=== PATIENT | male | born 1965 | race Caucasian/White ===

== ENCOUNTER 2016-10-11 15:43 | Observation (INO) | payer MEDICARE, OTHER ==
--- NOTE | 2016-10-11 16:15 | EDM.PDOC ---
ED HPI GENERAL MEDICAL PROBLEM - General Chief Complaint: Headache Stated Complaint: CHILLS,VOMITING Time Seen by Provider: 10/11/16 16:14 Source of Information: Reports: Patient History Limitations: Reports: No Limitations - History of Present Illness INITIAL COMMENTS - FREE TEXT/NARRATIVE: Stas presents today with complaints of acute onset cough, clear mucus production and low backpain. Onset Date: 10/11/16 Onset Time: 03:00 Duration: Hour(s): Location: Reports: Chest, Back Quality: Reports: Ache, Throbbing Severity: Moderate Improves with: Reports: None Worsens with: Reports: None Associated Symptoms: Reports: Chest Pain, Cough, Diaphoresis, Fever/Chills, Malaise, Other (nausea). 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 ) - Related Data Allergies Allergy/AdvReac Type Severity Reaction Status Date / Time cefazolin sodium [From Ancef] Allergy Anaphylactic Verified 01/28/14 13:27 Shock Penicillins Allergy Anaphylactic Verified 01/28/14 13:27 Shock succinylcholine chloride Allergy Anaphylactic Verified 01/28/14 13:27 [From Anectine] Shock Home Meds: Home Meds Amitripyline mg PO BEDTIME 01/28/14 [History] Meloxicam [Mobic] 7.5 mg PO DAILY 01/28/14 [History] Cyclobenzaprine [Flexeril] 1 tab PO BID 10/11/16 [History] tiZANidine 1 tab PO ASDIRECTED 10/11/16 [History] Past Medical History Musculoskeletal History: Reports: Back Pain, Chronic - Past Surgical History HEENT Surgical History: Reports: Tonsillectomy GI Surgical History: Reports: Appendectomy Social & Family History - Tobacco Use Smoking Status *Q: Never Smoker - Alcohol Use Days Per Week of Alcohol Use: 0 - Recreational Drug Use Recreational Drug Use: No ED ROS GENERAL - Review of Systems Review Of Systems: See Below Constitutional: Reports: Chills, Fatigue, Diaphoresis. Denies: Night Sweats HEENT: Reports: No Symptoms Respiratory: Reports: Cough, Sputum. Denies: Wheezing, Pleuritic Chest Pain, Hemoptysis Cardiovascular: Reports: Chest Pain. Denies: Dyspnea on Exertion, Edema, Lightheadedness, Palpitations, PND, Syncope Endocrine: Reports: No Symptoms GI/Abdominal: Reports: Nausea. Denies: Constipation, Diarrhea, Distension, Hematemesis, Hematochezia, Vomiting : Reports: No Symptoms Musculoskeletal: Reports: Other (Back pain L5 area - chronic in nature with acute worsening. ) Skin: Reports: Diaphoresis. Denies: Cyanosis, Jaundice, Mottled, Pallor, Bruising, Pruritis, Rash, Erythema Neurological: Denies: Confusion, Dizziness, Headache, Numbness, Tingling, Weakness Psychiatric: Reports: No Symptoms Hematologic/Lymphatic: Reports: No Symptoms Immunologic: Reports: No Symptoms ED EXAM, GENERAL - Physical Exam Exam: See Below Exam Limited By: No Limitations General Appearance: Alert, WD/WN, Moderate Distress Eye Exam: Bilateral Eye: EOMI, PERRL Ears: Normal External Exam, Normal Canal, Hearing Grossly Normal, Normal TMs Ear Exam: Bilateral Ear: Auricle Normal, Canal Normal, TM normal Nose: Normal Inspection, Normal Mucosa, No Blood Throat/Mouth: Normal Inspection, Normal Lips, Normal Teeth, Normal Oropharynx, Normal Voice Head: Atraumatic, Normocephalic Neck: Normal Inspection, Supple, Non-Tender, Full Range of Motion. No: Lymphadenopathy (R), Lymphadenopathy (L) Respiratory/Chest: No Respiratory Distress, No Accessory Muscle Use, Chest Non- Tender, Decreased Breath Sounds, Crackles, Rhonchi Cardiovascular: Normal Peripheral Pulses, Regular Rate, Rhythm, No Edema, No Murmur, No Rub Peripheral Pulses: 2+: Radial (L), Radial (R), Dorsalis Pedis (L), Dorsalis Pedis (R) GI/Abdominal: Normal Bowel Sounds, Soft, Non-Tender, No Organomegaly, No Distention, No Abnormal Bruit, No Mass Back Exam: Normal Inspection, Full Range of Motion. No: CVA Tenderness (R), CVA Tenderness (L), Muscle Spasm, Paraspinal Tenderness, Vertebral Tenderness Extremities: Normal Inspection, Normal Range of Motion, No Pedal Edema, Normal Capillary Refill Neurological: Alert, Oriented, CN II-XII Intact, Normal Cognition, No Motor/ Sensory Deficits Psychiatric: Normal Affect, Normal Mood Skin Exam: Normal Color, No Rash, Cool, Diaphoretic Lymphatic: No Adenopathy EKG INTERPRETATION EKG Date: 10/11/16 Rhythm: NSR Course - Vital Signs Last Recorded V/S: Last Vital Signs Temp 35.8 C 10/11/16 17:25 Pulse 80 10/11/16 20:47 Resp 14 10/11/16 20:47 BP 114/64 10/11/16 20:47 Pulse Ox 97 10/11/16 20:47 - Orders/Labs/Meds Orders: Active Orders 24 hr Category Date Time Status EKG Documentation Completion [RC] ASDIRECTED Care 10/11/16 16:34 Active Abdomen Pelvis w Cont [CT] Stat Exams 10/11/16 18:44 Taken Chest 2V [CR] Stat Exams 10/11/16 16:28 Taken Iopamidol [Isovue-300 (61%)] Med 10/11/16 19:00 Active 136 ml IV . DIRECTED Lactated Ringers [Ringers, Lactated] 1,000 ml Med 10/11/16 18:45 Active IV ASDIRECTED Sodium Chloride 0.9% [Normal Saline] 1,000 ml Med 10/11/16 17:30 Active IV ASDIRECTED Sodium Chloride 0.9% [Saline Flush] Med 10/11/16 16:28 Active 10 ml FLUSH ASDIRECTED PRN Sodium Chloride 0.9% [Saline Flush] Med 10/11/16 18:58 Active 10 ml FLUSH ONETIME PRN Saline Lock Insert [OM.PC] Routine Oth 10/11/16 16:28 Ordered EKG 12 Lead [EK] Routine Ther 10/11/16 16:33 Ordered Medication Orders Sodium Chloride (Normal Saline) 1,000 mls @ 500 mls/hr IV ASDIRECTED [facility] Last Admin: 10/11/16 17:51 Dose: 500 mls/hr Lactated Ringer's (Ringers, Lactated) 1,000 mls @ 500 mls/hr IV ASDIRECTED RANDY Last Admin: 10/11/16 18:55 Dose: 500 mls/hr Iopamidol (Isovue-300 (61%)) 136 ml IV . DIRECTED [facility] Last Admin: 10/11/16 19:10 Dose: 150 ml Sodium Chloride (Saline Flush) 10 ml FLUSH ASDIRECTED PRN PRN Reason: Keep Vein Open Last Admin: 10/11/16 16:38 Dose: 10 ml Sodium Chloride (Saline Flush) 10 ml FLUSH ONETIME PRN PRN Reason: PER RADIOLOGY PROTOCOL Last Admin: 10/11/16 19:10 Dose: 10 ml Labs: Laboratory Tests 10/11/16 10/11/16 10/11/16 Range/Units 16:27 16:27 17:18 WBC 20.1 H (4.5-11.0) K/uL RBC 5.03 (4.30-5.90) M/uL Hgb 14.6 (12.0-15.0) g/dL Hct 42.4 (40.0-54.0) % MCV 84 (80-98) fL MCH 29 (27-31) pg MCHC 34 (32-36) % Plt Count 364 (150-400) K/uL Neut % (Auto) 84 H (36-66) % Lymph % (Auto) 10 L (24-44) % [place] % (Auto) 5 (2-6) % Eos % (Auto) 1 L (2-4) % Baso % (Auto) 1 (0-1) % Sodium 146 (140-148) mmol/L Potassium 3.6 (3.6-5.2) mmol/L Chloride 107 (100-108) mmol/L Carbon Dioxide 28 (21-32) mmol/L Anion Gap 11.5 (5.0-14.0) mmol/L BUN 14 (7-18) mg/dL Creatinine 1.3 (0.8-1.3) mg/dL Est Cr Clr Drug Dosing 79.44 mL/min Estimated GFR (MDRD) 58 L (>60) Glucose 149 H (74-106) mg/dL Lactic Acid 2.1 H (0.4-2.0) mmol/L Calcium 9.1 (8.5-10.1) mg/dL Total Bilirubin 0.5 (0.2-1.0) mg/dL AST 22 (15-37) U/L ALT 28 (12-78) U/L Alkaline Phosphatase 103 (46-116) U/L C-Reactive Protein (0.0-0.3) mg/dL Total Protein 8.1 (6.4-8.2) g/dL Albumin 4.8 (3.4-5.0) g/dL Globulin 3.3 (2.3-3.5) g/dL Albumin/Globulin Ratio 1.5 (1.2-2.2) Urine Color Urine Appearance Urine pH (4.5-8.0) Ur Specific [place] (1.008-1.030) Urine Protein (NEGATIVE) mg/dL Urine Glucose (UA) (NEGATIVE) mg/dL Urine Ketones (NEGATIVE) mg/dL Urine Occult Blood (NEGATIVE) Urine Nitrite (NEGAITVE) Urine Bilirubin (NEGATIVE) Urine Urobilinogen (NORMAL) mg/dL Ur Leukocyte Esterase (NEGATIVE) Urine RBC (0-5) Urine WBC (0-5) Ur Epithelial Cells Amorphous Sediment Urine Bacteria Urine Mucus Urine Opiates Screen (NEGATIVE) Ur Oxycodone Screen (NEGATIVE) Urine Methadone Screen (NEGATIVE) Ur Propoxyphene Screen (NEGATIVE) Ur Barbiturates Screen (NEGATIVE) Ur Tricyclics Screen (NEGATIVE) Ur Phencyclidine Scrn (NEGATIVE) Ur Amphetamine Screen (NEGATIVE) U Methamphetamines Scrn (NEGATIVE) Urine MDMA Screen (NEGATIVE) U Benzodiazepines Scrn (NEGATIVE) U Cocaine Metab Screen (NEGATIVE) U Marijuana (THC) Screen (NEGATIVE) 10/11/16 10/11/16 10/11/16 Range/Units 21:29 21:29 22:11 WBC (4.5-11.0) K/uL RBC (4.30-5.90) M/uL Hgb (12.0-15.0) g/dL Hct (40.0-54.0) % MCV (80-98) fL MCH (27-31) pg MCHC (32-36) % Plt Count (150-400) K/uL Neut % (Auto) (36-66) % Lymph % (Auto) (24-44) % [place] % (Auto) (2-6) % Eos % (Auto) (2-4) % Baso % (Auto) (0-1) % Sodium (140-148) mmol/L Potassium (3.6-5.2) mmol/L Chloride (100-108) mmol/L Carbon Dioxide (21-32) mmol/L Anion Gap (5.0-14.0) mmol/L BUN (7-18) mg/dL Creatinine (0.8-1.3) mg/dL Est Cr Clr Drug Dosing mL/min Estimated GFR (MDRD) (>60) Glucose (74-106) mg/dL Lactic Acid (0.4-2.0) mmol/L Calcium (8.5-10.1) mg/dL Total Bilirubin (0.2-1.0) mg/dL AST (15-37) U/L ALT (12-78) U/L Alkaline Phosphatase (46-116) U/L C-Reactive Protein 1.11 H (0.0-0.3) mg/dL Total Protein (6.4-8.2) g/dL Albumin (3.4-5.0) g/dL Globulin (2.3-3.5) g/dL Albumin/Globulin Ratio (1.2-2.2) Urine Color Yellow Urine Appearance Clear Urine pH 6.5 (4.5-8.0) Ur Specific [place] 1.005 L (1.008-1.030) Urine Protein Negative (NEGATIVE) mg/dL Urine Glucose (UA) Normal (NEGATIVE) mg/dL Urine Ketones Negative (NEGATIVE) mg/dL Urine Occult Blood Trace (NEGATIVE) Urine Nitrite Negative (NEGAITVE) Urine Bilirubin Negative (NEGATIVE) Urine Urobilinogen Normal (NORMAL) mg/dL Ur Leukocyte Esterase Negative (NEGATIVE) Urine RBC 0-5 (0-5) Urine WBC 0-5 (0-5) Ur Epithelial Cells Few Amorphous Sediment Rare Urine Bacteria Few Urine Mucus Rare Urine Opiates Screen Positive H (NEGATIVE) Ur Oxycodone Screen Negative (NEGATIVE) Urine Methadone Screen Negative (NEGATIVE) Ur Propoxyphene Screen Negative (NEGATIVE) Ur Barbiturates Screen Negative (NEGATIVE) Ur Tricyclics Screen Positive H (NEGATIVE) Ur Phencyclidine Scrn Positive H (NEGATIVE) Ur Amphetamine Screen Negative (NEGATIVE) U Methamphetamines Scrn Negative (NEGATIVE) Urine MDMA Screen Negative (NEGATIVE) U Benzodiazepines Scrn Negative (NEGATIVE) U Cocaine Metab Screen Negative (NEGATIVE) U Marijuana (THC) Screen Positive H (NEGATIVE) Lab work reviewed. Will complete lactic acid and UDS. CRP elevated. Case discussed with Dr. Parra, will notify Dr. Shine of patient lab work and status. Meds: Medications Generic Name Dose Route Start Last Admin Trade Name Freq PRN Reason Stop Dose Admin Sodium Chloride 1,000 mls @ 500 mls/hr 10/11/16 17:30 10/11/16 17:51 Normal Saline IV 500 mls/hr ASDIRECTED RANDY Administration Lactated Ringer's 1,000 mls @ 500 mls/hr 08/13/17 18:45 10/11/16 18:55 Ringers, Lactated IV 500 mls/hr ASDIRECTED RANDY Administration Iopamidol 136 ml 10/11/16 19:00 10/11/16 19:10 Isovue-300 (61%) IV 150 ml . DIRECTED RANDY Administration Sodium Chloride 10 ml 10/11/16 16:28 10/11/16 16:38 Saline Flush FLUSH 10 ml ASDIRECTED PRN Administration Keep Vein Open Sodium Chloride 10 ml 10/11/16 18:58 10/11/16 19:10 Saline Flush FLUSH 10 ml ONETIME PRN Administration PER RADIOLOGY PROTOCOL Discontinued Medications Generic Name Dose Route Start Last Admin Trade Name Freq PRN Reason Stop Dose Admin Hydromorphone HCl 0.5 mg 10/11/16 16:29 10/11/16 16:39 Dilaudid IVPUSH 10/11/16 16:30 0.5 mg ONETIME ONE Administration Hydromorphone HCl 1 mg 10/11/16 18:42 10/11/16 18:54 Dilaudid IVPUSH 10/11/16 18:43 1 mg ONETIME ONE Administration Sodium Chloride 81 mls @ 3 mls/sec 10/11/16 18:58 10/11/16 19:10 Normal Saline IV 10/11/16 18:59 3 mls/sec ONETIME ONE Administration Ondansetron HCl 4 mg 10/11/16 16:29 10/11/16 16:39 Zofran IVPUSH 10/11/16 16:30 4 mg ONETIME ONE Administration Ondansetron HCl 4 mg 10/11/16 18:42 10/11/16 18:54 Zofran IVPUSH 10/11/16 18:43 4 mg ONETIME ONE Administration - Radiology Interpretation Free Text/Narrative:: Chest x-ray reviewed, wet read and compared to most recent chest x-ray completed in 2013 with Officer. No acute findings noted. Radiologist interpretation pending. - Re-Assessments/Exams Free Text/Narrative Re-Assessment/Exam: 10/11/16 18:45 Patient not able to urinate, WBC elevated with left shift. Will complete Abdominal/pelvis CT with contrast. Patient in agreement with plan. Continue IV fluids, pain and nausea management. Free Text/Narrative Re-Assessment/Exam: 10/11/16 23:05 Patient status, lab work reviewed with Dr. Shine. He states he will be in to see patient. Departure - Departure Time of Disposition: 23:06 Disposition: Admitted As Inpatient 65 Condition: Fair Clinical Impression: Colitis, Marijuana use - Discharge Information Forms: ED Department Discharge - My Orders Last 24 Hours: My Active Orders 10/11/16 16:28 Chest 2V [CR] Stat Sodium Chloride 0.9% [Saline Flush] 10 ml FLUSH ASDIRECTED PRN Saline Lock Insert [OM.PC] Routine 10/11/16 16:33 EKG 12 Lead [EK] Routine 10/11/16 16:34 EKG Documentation Completion [RC] ASDIRECTED 10/11/16 17:30 Sodium Chloride 0.9% [Normal Saline] 1,000 ml IV ASDIRECTED 10/11/16 18:44 Abdomen Pelvis w Cont [CT] Stat 10/11/16 18:45 Lactated Ringers [Ringers, Lactated] 1,000 ml IV ASDIRECTED 10/11/16 18:58 Sodium Chloride 0.9% [Saline Flush] 10 ml FLUSH ONETIME PRN 10/11/16 19:00 Iopamidol [Isovue-300 (61%)] 136 ml IV . DIRECTED - Assessment/Plan Last 24 Hours: My Active Orders 10/11/16 16:28 Chest 2V [CR] Stat Sodium Chloride 0.9% [Saline Flush] 10 ml FLUSH ASDIRECTED PRN Saline Lock Insert [OM.PC] Routine 10/11/16 16:33 EKG 12 Lead [EK] Routine 10/11/16 16:34 EKG Documentation Completion [RC] ASDIRECTED 10/11/16 17:30 Sodium Chloride 0.9% [Normal Saline] 1,000 ml IV ASDIRECTED 10/11/16 18:44 Abdomen Pelvis w Cont [CT] Stat 10/11/16 18:45 Lactated Ringers [Ringers, Lactated] 1,000 ml IV ASDIRECTED 10/11/16 18:58 Sodium Chloride 0.9% [Saline Flush] 10 ml FLUSH ONETIME PRN 10/11/16 19:00 Iopamidol [Isovue-300 (61%)] 136 ml IV . DIRECTED Assessment:: Colitis Marijuana use Plan: Dr. Shine will be in to evaluate patient for further care, possible admission.
[2016-10-11] MEDS ORDERED: Sodium Chloride 0.9% 10 ML Syringe FLUSH PRN ×2 (16:28→18:58)
[2016-10-11] MEDS ORDERED: HYDROmorphone 0.5 MG/0.5 ML Syringe IVPUSH ONE (16:29)
[2016-10-11] MEDS ORDERED: Ondansetron 4 MG/2 ML SDV IVPUSH ONE ×2 (16:29→18:42)
[2016-10-11] MEDS ORDERED: Sodium Chloride 0.9% 1,000 ML IV SCH ×2 (17:30→23:45)
[2016-10-11] MEDS ORDERED: HYDROmorphone 1 MG/ML Syringe IVPUSH ONE (18:42)
[2016-10-11] MEDS ORDERED: Lactated Ringers 1,000 ML IV SCH (18:45)
[2016-10-11] MEDS ORDERED: Iopamidol 612 MG/ML 150 ML Bottle IV SCH (19:00)
[2016-10-11] MEDS ORDERED: Ondansetron 4 MG/2 ML SDV IV PRN (23:45)
[2016-10-11] MEDS ORDERED: HYDROmorphone 0.5 MG/0.5 ML Syringe IVPUSH PRN (23:48)
[2016-10-12] MEDS ORDERED: Amitriptyline 10 MG Tab PO SCH ×2 (01:00→21:00)
--- NOTE | 2016-10-12 06:49 | HP ---
CHIEF COMPLAINT: Back and abdominal pain. HISTORY OF PRESENT ILLNESS: A 51-year-old, who had fractured his spine in the past, L5-S1 area. About three years ago, he was in the emergency room with similar findings of severe back pain and upper abdominal pain, nausea. He had loose stools at that time, was noted to have elevated white count and nonspecific bowel pattern on imaging. He was given fluids and was feeling better, was sent home. He started having some back pain today along with abdominal pain, nausea, vomiting, sweating and no loose stools. He came to the emergency room, CT scan was obtained, which showed mild wall thickening consistent with possible colitis. He has been on no recent antibiotics. His only complaint is that he has had nasal congestion recently, a lot of drainage. He has had no family history or personal history of inflammatory bowel disease. He has not been with around anyone else who has been ill and I was asked to admit the patient for further evaluation and treatment. PAST MEDICAL HISTORY: It sounds like he had his appendix and tonsils out in the past and fractured spine, but otherwise no other significant surgical or medical problems. He gets his care through the [facility]. MEDICATIONS: He has been on hydrocodone in the past, but was able to get off it. He takes amitriptyline 10 mg at bedtime, Flexeril 10 mg b.i.d. He alternates that with tizanidine 2 mg b.i.d., meloxicam 7.5 mg daily. ALLERGIES: PENICILLIN AND CEFAZOLIN. SOCIAL HISTORY: He is a nonsmoker. No alcohol use. He does admit to smoking marijuana and that he states that this is better than when he was on hydrocodone in the past. FAMILY HISTORY: Father had some colon polyps, but there is no family history of inflammatory bowel disease. REVIEW OF SYSTEMS: Denies headaches, vision changes, upper respiratory symptoms, other than that nasal congestion with drainage. He has had some nausea with vomiting. No diarrhea. He had a normal bowel movement. No bloody or black stools. No urinary problems and feels that he is dehydrated. No swelling in his legs. No skin problems reported. No neurologic complaints reported other than his back pain. PHYSICAL EXAMINATION: VITAL SIGNS: Weight 90 kg. Temp 35.8, pulse 80, blood pressure 114/64, respirations 14, O2 saturation 97% on room air. GENERAL: The patient is alert and oriented x3. Resting comfortably in no apparent distress. HEENT: Pharynx is clear. Slightly dry mucous membranes. NECK: Supple. No obvious thyromegaly. LUNGS: Clear. HEART: Regular without murmurs. ABDOMEN: Soft, nontender. No mass or organomegaly palpated. At present, he had no abdominal pain, but had received IV Dilaudid for back pain. He does have deformity in the area of L5, but there was no pain or other deformity. EXTREMITIES: No edema. Pedal pulses are palpable and equal bilaterally. SKIN: Unremarkable. LABORATORY DATA: White count 20,000, hemoglobin 14.6, platelets 364,000 with 84% neutrophils, 10% lymphocytes. Sodium 146, potassium 3.6, chloride 107, BUN is 14, creatinine 1.3, glucose 149. Liver function functions were normal. C-reactive protein was elevated at 1.1. Urine was clear. Urine toxic screen was positive for opiates, I am not sure if they gave him the Dilaudid before they did this or not. Positive for the tricyclics which he is on phencyclidine, was positive for marijuana, which he admits to. ASSESSMENT: Nausea with vomiting, abdominal and back pain, which he had similar episode, he states a year ago, but it looks like based on his medical records that was about three years ago. At that time, he was given IV fluids and discharged from the ER. We will admit him under observation. Anticipate less than two midnight stay, given IV fluids, I do feel that he has a little bit dehydrated. The patient is not having any pain at present. We will continue with Dilaudid as needed. Here, staff was thinking that he needed antibiotics, but I do not have any reason to say at this point that he has had bacterial infectious colitis at this time and presents similar to how he did three years ago. We will re-evaluate in the morning after IV fluids, pain medicine if needed. Jordy Shine MD /[id number]
[2016-10-12 07:22] VITALS: BP 107/76
--- NOTE | 2016-10-12 08:55 | CR ---
Chest 2V INDICATION: SOB, cough, diaphoresis COMPARISON: 12/27/2010 FINDINGS: 3 views. Heart size normal. Lungs hyperinflated. Nodular opacity right midlung. No foca l consolidation or pleural effusion. No signs of pulmonary edema. IMPRESSION: 1. Hyperinflation. No infiltrate seen. 2. Nodular opacity right midlung. Recommend CT chest without IV contrast to exclude pulmonary nodule .
[2016-10-12] MEDS ORDERED: CYCLOBENZAPRINE PO SCH (09:00)
[2016-10-12] MEDS ORDERED: Meloxicam 7.5 MG Tab PO SCH (09:00)
--- NOTE | 2016-10-13 03:04 | DISCH ---
DISCHARGE DIAGNOSES: 1. Abdominal pain with mild thickening of his colon wall consistent with mild colitis although really no symptoms of this. 2. Chronic back pain with previous lumbar fracture. PROCEDURES DURING THE HOSPITALIZATION: None. REASON FOR HOSPITALIZATION: A 51-year-old, who had a similar episode here in the hospital about three years ago, where his back was acting up and developed nausea and vomiting. At that time, he had loose stools, was given IV fluids and sent home. He presented with abdominal pain, back pain, sweating. CT scan showed mild thickening of the colon, ascending and transverse colon consistent with mild colitis, but had no diarrhea, did have the nausea and vomiting, was given IV Dilaudid and IV fluids, Zofran for nausea and by the time I saw him, he was feeling quite well, but with the trouble he has had with this in the past, we did admit him under observation. Significant findings, his white count on admission was 20,000, discharge was 16.9. Hemoglobin on admission 14.6, he had 84% neutrophils, 10% lymphocytes. Sodium 146, potassium 3.6, chloride 107, BUN is 14, creatinine 1.3, glucose 149. Liver functions are normal. C-reactive protein was elevated at 1.1. Urinalysis was unremarkable. Urine drug screen was positive for marijuana which he does admit. For his chronic back pain which he is on, I will also phencyclidine and possible opioids, but I dot know if he had a dose of Dilaudid already in the ER when they did the urine drug screen. CT scan showed mild thickening of the ascending and transverse colon consistent with mild colitis. HOSPITAL COURSE: The patient was admitted, did not require any further Dilaudid or Zofran. His white count was better, he improved as far as nausea or pain, and did desire to go home. DISCHARGE DISPOSITION: Discharged to home. ACTIVITY: As tolerated. DIET: As tolerated. FOLLOWUP: He will follow up with his regular provider as needed. He will return if his pain intensifies, develops more GI symptoms.
== END 2016-10-12 09:51 | disposition home or self-care (01) ==
LOC: JP.ED 15:43 → JP.MS 23:57
PROVIDERS: ADMIT Family Medicine; ATTEND Family Medicine
DX: R10.9 Unspecified abdominal pain (principal); K63.89 Other specified diseases of intestine; G89.29 Other chronic pain; M54.9 Dorsalgia, unspecified; F12.90 Cannabis use, unspecified, uncomplicated; Z88.0 Allergy status to penicillin; Z88.1 Allergy status to other antibiotic agents; Z79.899 Other long term (current) drug therapy; Z88.8 Allergy status to other drugs, medicaments and biological substances; Z98.890 Other specified postprocedural states
CPT/HCPCS: 36415; 71020; 74177; 80053; 80305; 81001; 83605; 85025; 85027; 86140; 87040; 93005; 96361; 96374; 96375; 96376; 99284; 99285; A9270; G0378; J1170; J2405; J7030; J7040; J7050; J7120; 93010

== ENCOUNTER 2017-04-10 15:28 | Inpatient (IN) | payer MEDICARE, OTHER ==
[2017-04-10] MEDS ORDERED: Ketorolac 30 MG/ML SDV IVPUSH ONE (16:44)
[2017-04-10] MEDS ORDERED: Ondansetron 4 MG/2 ML SDV IVPUSH ONE ×2 (16:45→18:33)
[2017-04-10] MEDS ORDERED: Sodium Chloride 0.9% 1,000 ML IV SCH (16:45)
--- NOTE | 2017-04-10 16:51 | EDM.PDOC ---
<Eleonora Parra - Last Filed: 04/10/17 16:45> ED HPI GENERAL MEDICAL PROBLEM - General Chief Complaint: General Stated Complaint: ABD PAIN,CHILLS,VOMITING Time Seen by Provider: 04/10/17 15:55 Source of Information: Reports: Patient History Limitations: Reports: No Limitations - History of Present Illness INITIAL COMMENTS - FREE TEXT/NARRATIVE: pt started to get ill yesterday and now has total body aches. he has vomited 2 or 3 times. He is chilling alot. Onset: Other ( started yesterday. ) Duration: Hour(s):, Getting Worse Location: Reports: Abdomen, Generalized, Other ( Pt has some pain in the upper abdoman probably from vomiting. ) Associated Symptoms: Reports: Diaphoresis, Fever/Chills, Nausea/Vomiting Middle Abdomen Pain Score (Numeric/FACES): 8 - Related Data Allergies Allergy/AdvReac Type Severity Reaction Status Date / Time cefazolin sodium [From Ancef] Allergy Anaphylactic Verified 01/28/14 13:27 Shock Penicillins Allergy Anaphylactic Verified 01/28/14 13:27 Shock succinylcholine chloride Allergy Anaphylactic Verified 01/28/14 13:27 [From Anectine] Shock Home Meds: Home Meds Meloxicam [Mobic] 7.5 mg PO DAILY 01/28/14 [History] Amitriptyline [Elavil] 1 tab PO BEDTIME 10/11/16 [History] Cyclobenzaprine [Flexeril] 1 tab PO BID 10/11/16 [History] tiZANidine 1 tab PO BID 10/11/16 [History] Venlafaxine HCl [Venlafaxine HCl ER] 112.5 mg PO DAILY 10/12/16 [History] Past Medical History Musculoskeletal History: Reports: Back Pain, Chronic Neurological History: Reports: Brain Injury, Head Trauma Psychiatric History: Reports: Depression - Infectious Disease History Infectious Disease History: Reports: Chicken Pox - Past Surgical History HEENT Surgical History: Reports: Tonsillectomy GI Surgical History: Reports: Appendectomy Other Neurological Surgeries/Procedures: 3 head 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 Other Musculoskeletal Surgeries/Procedures:: leg pain, shooting pains in left testicle Social & Family History - Family History Family Medical History: Noncontributory - Tobacco Use Smoking Status *Q: Never Smoker Years of Tobacco use: 20 Packs/Tins Daily: 1 Used Tobacco, but Quit: Yes Month Tobacco Last Used: years ago Second Hand Smoke Exposure: No - Caffeine Use Caffeine Use: Reports: Soda - Alcohol Use Days Per Week of Alcohol Use: 0 - Recreational Drug Use Recreational Drug Use: Yes Drug Use in Last 12 Months: Yes Recreational Drug Type: Reports: Marijuana/Hashish Recreational Drug Use Frequency: Weekly Recreational Drug Last Use: yesterday ED ROS GENERAL - Review of Systems Review Of Systems: See Below Constitutional: Reports: Fever, Chills, Malaise, Weakness, Diaphoresis HEENT: Reports: No Symptoms Respiratory: Reports: Cough Cardiovascular: Reports: No Symptoms Endocrine: Reports: No Symptoms GI/Abdominal: Reports: Abdominal Pain, Other (upper abdomanl distress Pt thinks it might be from vomiting. ) : Reports: No Symptoms Musculoskeletal: Reports: No Symptoms Skin: Reports: No Symptoms Neurological: Reports: No Symptoms Psychiatric: Reports: No Symptoms ED EXAM, GENERAL - Physical Exam Exam: See Below Free Text/Narrative:: pt is chilling and has total body aching. He states this started yesterday and has gotten progressively worse. He has vomited twice. Exam Limited By: No Limitations General Appearance: Alert, Anxious, Mild Distress Ears: Normal TMs Nose: Normal Inspection Throat/Mouth: Normal Inspection Head: Atraumatic Neck: Other (no sig glandular swelling. ) Respiratory/Chest: No Respiratory Distress Cardiovascular: Regular Rate, Rhythm GI/Abdominal: Soft, Non-Tender, Other ( pt has very mild tenderness in the upper abdoman. ) (Male) Exam: Deferred Rectal (Males) Exam: Deferred Extremities: Normal Inspection Neurological: Alert, Oriented, Normal Cognition, Other (pt is moaning and groaning. ) Psychiatric: Anxious Course - Vital Signs Last Recorded V/S: Last Vital Signs Temp 95.5 F 04/10/17 15:50 Pulse 65 04/10/17 15:50 Resp 18 04/10/17 15:50 BP 171/90 H 04/10/17 15:50 Pulse Ox 100 04/10/17 15:50 - Orders/Labs/Meds Orders: Active Orders 24 hr Category Date Time Status Abdomen Pelvis w Cont [CT] Stat Exams 04/10/17 18:33 Taken Chest 2V [CR] Stat Exams 04/10/17 17:11 Taken Sodium Chloride 0.9% [Normal Saline] 1,000 ml Med 04/10/17 16:45 Active IV ASDIRECTED Sodium Chloride 0.9% [Normal Saline] 1,000 ml Med 04/10/17 16:45 Active IV ASDIRECTED Sodium Chloride 0.9% [Normal Saline] 100 ml Med 04/10/17 18:45 Active IV ASDIRECTED Medication Orders Sodium Chloride (Normal Saline) 1,000 mls @ 999 mls/hr IV ASDIRECTED RANDY Last Admin: 04/10/17 18:45 Dose: 999 mls/hr Infusion: 04/10/17 18:01 Dose: 999 mls/hr Admin: 04/10/17 17:00 Dose: 999 mls/hr Sodium Chloride (Normal Saline) 1,000 mls @ 999 mls/hr IV ASDIRECTED RANDY Last Admin: 04/10/17 20:31 Dose: 999 mls/hr Sodium Chloride (Normal Saline) 100 mls @ 3 mls/sec IV ASDIRECTED RANDY Last Admin: 04/10/17 18:58 Dose: 3 mls/sec Labs: Laboratory Tests 04/10/17 04/10/17 04/10/17 Range/Units 16:56 16:56 17:12 WBC 17.7 H (4.5-11.0) K/uL RBC 4.85 (4.30-5.90) M/uL Hgb 14.1 (12.0-15.0) g/dL Hct 41.9 (40.0-54.0) % MCV 86 (80-98) fL MCH 29 (27-31) pg MCHC 34 (32-36) % Plt Count 332 (150-400) K/uL Neut % (Auto) 84 H (36-66) % Lymph % (Auto) 10 L (24-44) % [place] % (Auto) 6 (2-6) % Eos % (Auto) 0 L (2-4) % Baso % (Auto) 0 (0-1) % Sodium 141 (140-148) mmol/L Potassium 4.0 (3.6-5.2) mmol/L Chloride 103 (100-108) mmol/L Carbon Dioxide 29 (21-32) mmol/L Anion Gap 9.2 (5.0-14.0) mmol/L BUN 11 (7-18) mg/dL Creatinine 1.1 (0.8-1.3) mg/dL Est Cr Clr Drug Dosing 87.20 mL/min Estimated GFR (MDRD) > 60 (>60) Glucose 126 H (74-106) mg/dL Lactic Acid 1.9 (0.4-2.0) mmol/L Calcium 9.6 (8.5-10.1) mg/dL Total Bilirubin 0.4 (0.2-1.0) mg/dL AST 21 (15-37) U/L ALT 29 (12-78) U/L Alkaline Phosphatase 88 (46-116) U/L Total Protein 7.3 (6.4-8.2) g/dL Albumin 4.5 (3.4-5.0) g/dL Globulin 2.8 (2.3-3.5) g/dL Albumin/Globulin Ratio 1.6 (1.2-2.2) Urine Color Urine Appearance Urine pH (4.5-8.0) Ur Specific [place] (1.008-1.030) Urine Protein (NEGATIVE) mg/dL Urine Glucose (UA) (NEGATIVE) mg/dL Urine Ketones (NEGATIVE) mg/dL Urine Occult Blood (NEGATIVE) Urine Nitrite (NEGAITVE) Urine Bilirubin (NEGATIVE) Urine Urobilinogen (NORMAL) mg/dL Ur Leukocyte Esterase (NEGATIVE) Urine RBC (0-5) Urine WBC (0-5) Ur Epithelial Cells Amorphous Sediment Urine Bacteria Urine Mucus 04/10/17 Range/Units 18:43 WBC (4.5-11.0) K/uL RBC (4.30-5.90) M/uL Hgb (12.0-15.0) g/dL Hct (40.0-54.0) % MCV (80-98) fL MCH (27-31) pg MCHC (32-36) % Plt Count (150-400) K/uL Neut % (Auto) (36-66) % Lymph % (Auto) (24-44) % [place] % (Auto) (2-6) % Eos % (Auto) (2-4) % Baso % (Auto) (0-1) % Sodium (140-148) mmol/L Potassium (3.6-5.2) mmol/L Chloride (100-108) mmol/L Carbon Dioxide (21-32) mmol/L Anion Gap (5.0-14.0) mmol/L BUN (7-18) mg/dL Creatinine (0.8-1.3) mg/dL Est Cr Clr Drug Dosing mL/min Estimated GFR (MDRD) (>60) Glucose (74-106) mg/dL Lactic Acid (0.4-2.0) mmol/L Calcium (8.5-10.1) mg/dL Total Bilirubin (0.2-1.0) mg/dL AST (15-37) U/L ALT (12-78) U/L Alkaline Phosphatase (46-116) U/L Total Protein (6.4-8.2) g/dL Albumin (3.4-5.0) g/dL Globulin (2.3-3.5) g/dL Albumin/Globulin Ratio (1.2-2.2) Urine Color [place] Urine Appearance Cloudy Urine pH 7.0 (4.5-8.0) Ur Specific [place] 1.015 (1.008-1.030) Urine Protein Trace (NEGATIVE) mg/dL Urine Glucose (UA) Normal (NEGATIVE) mg/dL Urine Ketones 15 H (NEGATIVE) mg/dL Urine Occult Blood Moderate (NEGATIVE) Urine Nitrite Negative (NEGAITVE) Urine Bilirubin Small (NEGATIVE) Urine Urobilinogen 1 (NORMAL) mg/dL Ur Leukocyte Esterase Small (NEGATIVE) Urine RBC 5-10 H (0-5) Urine WBC 5-10 H (0-5) Ur Epithelial Cells Few Amorphous Sediment Numerous Urine Bacteria Few Urine Mucus Numerous Meds: Medications Generic Name Dose Route Start Last Admin Trade Name Freq PRN Reason Stop Dose Admin Sodium Chloride 1,000 mls @ 999 mls/hr 04/10/17 16:45 04/10/17 18:45 Normal Saline IV 999 mls/hr ASDIRECTED RANDY Administration Sodium Chloride 1,000 mls @ 999 mls/hr 04/10/17 16:45 04/10/17 20:31 Normal Saline IV 999 mls/hr ASDIRECTED RANDY Administration Sodium Chloride 100 mls @ 3 mls/sec 04/10/17 18:45 04/10/17 18:58 Normal Saline IV 3 mls/sec ASDIRECTED RANDY Administration Discontinued Medications Generic Name Dose Route Start Last Admin Trade Name Freq PRN Reason Stop Dose Admin Hydromorphone HCl 1 mg 04/10/17 18:33 04/10/17 18:44 Dilaudid IVPUSH 04/10/17 18:34 1 mg ONETIME ONE Administration Hydromorphone HCl 0.5 mg 04/10/17 19:53 04/10/17 20:27 Dilaudid IVPUSH 04/10/17 19:54 0.5 mg ONETIME ONE Administration Metronidazole 500 mg/ Premix 100 mls @ 100 mls/hr 04/10/17 19:52 04/10/17 20: 28 IV 04/10/17 20:51 100 mls/hr ONETIME ONE Administration Iopamidol 120 ml 04/10/17 18:45 04/10/17 18:58 Isovue-300 (61%) IV 120 ml . DIRECTED RANDY Administration Ketorolac Tromethamine 30 mg 04/10/17 16:44 04/10/17 16:58 Toradol IVPUSH 04/10/17 16:45 30 mg ONETIME ONE Administration Ondansetron HCl 4 mg 04/10/17 16:45 04/10/17 16:58 Zofran IVPUSH 04/10/17 16:46 4 mg ONETIME ONE Administration Ondansetron HCl 4 mg 04/10/17 18:33 04/10/17 18:43 Zofran IVPUSH 04/10/17 18:34 4 mg ONETIME ONE Administration Prochlorperazine Edisylate 5 mg 04/10/17 19:53 04/10/17 20:27 Compazine IVPUSH 04/10/17 19:54 5 mg ONETIME ONE Administration Departure - Departure Disposition: Admitted As Inpatient 65 Clinical Impression: Abdominal pain Qualifiers: Abdominal location: left lower quadrant Qualified Code(s): R10.32 - Left lower quadrant pain - Discharge Information Referrals: Jordy Shine MD [Primary Care Provider] - Forms: ED Department Discharge - My Orders Last 24 Hours: My Active Orders 04/10/17 18:33 Abdomen Pelvis w Cont [CT] Stat 04/10/17 18:45 Sodium Chloride 0.9% [Normal Saline] 100 ml IV ASDIRECTED - Assessment/Plan Last 24 Hours: My Active Orders 04/10/17 18:33 Abdomen Pelvis w Cont [CT] Stat 02/10/18 18:45 Sodium Chloride 0.9% [Normal Saline] 100 ml IV ASDIRECTED <OfficerJonny - Last Filed: 04/10/17 21:36> Course - Re-Assessments/Exams Free Text/Narrative Re-Assessment/Exam: 04/10/17 18:34 Took over care from Dr. Parra at 1800, has received fluids states her last 24 hours feeling poorly abdominal pain nausea and vomiting continues to have nausea and left lower quadrant abdominal pain no history of abdominal surgeries , examination abdomen is soft but tender in the left lower quadrant normal bowel sounds Departure - Departure Time of Disposition: 21:36 Condition: Good - Assessment/Plan Plan: Assessment Acuity = acute Site and laterality = abdominal pain Etiology = unclear etiology consider pseudomembranous colitis given his history Manifestations = body aches, fever Location of injury = Home Lab values = WBC elevated at 17.7 consistent leukocytosis, lactic acid normal at 1.9 CMP unremarkable urinalysis reveals 5-10 rbc's consists with a hematuria 5-10 wbc's consists of pyuria CT scan of the abdomen was no acute process Plan Discussed case with hospitalist on-call they agreed to evaluate the patient in the emergency department for admission was given 1 dose of Flagyl in the ED for presumptive pseudomembranous colitis This note was dictated using [employer] voice recognition software please call with any questions on syntax or sathya.
[2017-04-10] MEDS: Sodium Chloride 0.9% 1,000 ML IV SCH ×2 (17:00→18:45)
[2017-04-10] MEDS ORDERED: HYDROmorphone 1 MG/ML Syringe IVPUSH ONE ×2 (18:33→21:46)
[2017-04-10] MEDS ORDERED: Iopamidol 612 MG/ML 150 ML Bottle IV SCH (18:45)
[2017-04-10] MEDS ORDERED: Sodium Chloride 0.9% 100 ML IV SCH (18:45)
[2017-04-10] MEDS ORDERED: metroNIDAZOLE/Normal Saline 500 MG in Premix Bag 1 BAG IV ONE (19:52)
[2017-04-10] MEDS ORDERED: Prochlorperazine 10 MG/2 ML SDV IVPUSH ONE (19:53)
[2017-04-10] MEDS ORDERED: HYDROmorphone 0.5 MG/0.5 ML Syringe IVPUSH ONE (19:53)
[2017-04-10] MEDS ORDERED: Bisacodyl 5 MG Tab PO PRN (22:18)
[2017-04-10] MEDS ORDERED: Ondansetron 4 MG/2 ML SDV IV PRN (22:18)
[2017-04-10] MEDS ORDERED: Pantoprazole 40 MG Vial IVPUSH SCH (22:18)
[2017-04-10] MEDS ORDERED: Ciprofloxacin in D5W 400 MG in Premix Bag 1 BAG IV SCH ×2 (22:18)
[2017-04-10] MEDS ORDERED: Albuterol 0.083% 2.5 MG/3 ML Neb Soln NEB PRN (22:18)
[2017-04-10] MEDS ORDERED: LORazepam 2 MG/ML MDV IV PRN (22:18)
[2017-04-10] MEDS ORDERED: HYDROmorphone 1 MG/ML Syringe IVPUSH PRN (22:18)
--- NOTE | 2017-04-10 22:44 | PCM.HP ---
H&P History of Present Illness - General Date of Service: 04/10/17 Admit Problem/Dx: Admission Diagnosis/Problem Admission Diagnosis/Problem Colitis presumed to be due to infection Source of Information: Patient History Limitations: Reports: No Limitations - History of Present Illness Initial Comments - Free Text/Narative: 04/10/17 18:34 Took over care from Dr. Parra at 1800, has received fluids states her last 24 hours feeling poorly abdominal pain nausea and vomiting continues to have nausea and left lower quadrant abdominal pain no history of abdominal surgeries , examination abdomen is soft but tender in the left lower quadrant normal bowel sounds Acuity = acute Site and laterality = abdominal pain Etiology = unclear etiology consider pseudomembranous colitis given his history Manifestations = body aches, fever Location of injury = Home Lab values = WBC elevated at 17.7 consistent leukocytosis, lactic acid normal at 1.9 CMP unremarkable urinalysis reveals 5-10 rbc's consists with a hematuria 5-10 wbc's consists of pyuria, CT scan of the abdomen was no acute process Plan Discussed case with hospitalist on-call they agreed to evaluate the patient in the emergency department for admission was given 1 dose of Flagyl in the ED for presumptive pseudomembranous colitis Onset of Symptoms: Reports: Gradual Duration of Symptoms: Reports: Day(s): (two) Location: Reports: Abdomen Quality: Reports: Ache, Sharp Severity: Severe Improves with: Reports: Medication Worsens with: Reports: None Associated Symptoms: Reports: Nausea/Vomiting, Other (abdominal pain) Middle Abdomen Pain Score (Numeric/FACES): 8 - Related Data Allergies/Adverse Reactions: Allergies Allergy/AdvReac Type Severity Reaction Status Date / Time cefazolin sodium [From Ancef] Allergy Anaphylactic Verified 01/28/14 13:27 Shock Penicillins Allergy Anaphylactic Verified 01/28/14 13:27 Shock succinylcholine chloride Allergy Anaphylactic Verified 01/28/14 13:27 [From Anectine] Shock Home Medications: Home Meds Meloxicam [Mobic] 7.5 mg PO DAILY 01/28/14 [History] Amitriptyline [Elavil] 1 tab PO BEDTIME 10/11/16 [History] Cyclobenzaprine [Flexeril] 1 tab PO BID 10/11/16 [History] tiZANidine 1 tab PO BID 10/11/16 [History] Venlafaxine HCl [Venlafaxine HCl ER] 112.5 mg PO DAILY 10/12/16 [History] Past Medical History Musculoskeletal History: Reports: Back Pain, Chronic Neurological History: Reports: Brain Injury, Head Trauma Psychiatric History: Reports: Depression - Infectious Disease History Infectious Disease History: Reports: Chicken Pox - Past Surgical History HEENT Surgical History: Reports: Tonsillectomy GI Surgical History: Reports: Appendectomy Other Neurological Surgeries/Procedures: 3 head 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 Other Musculoskeletal Surgeries/Procedures:: leg pain, shooting pains in left testicle Social & Family History - Family History Family Medical History: Noncontributory HEENT: Reports: None Respiratory: Reports: None GI: Reports: None : Reports: None OBGYN: Reports: None Neurological: Reports: None Psychiatric: Reports: None - Tobacco Use Smoking Status *Q: Never Smoker Years of Tobacco use: 20 Packs/Tins Daily: 1 Used Tobacco, but Quit: Yes Month Tobacco Last Used: years ago Second Hand Smoke Exposure: No - Caffeine Use Caffeine Use: Reports: Soda - Alcohol Use Days Per Week of Alcohol Use: 0 - Recreational Drug Use Recreational Drug Use: Yes Drug Use in Last 12 Months: Yes Recreational Drug Type: Reports: Marijuana/Hashish Recreational Drug Use Frequency: Weekly Recreational Drug Last Use: yesterday - Living Situation & Occupation Living situation: Reports: Single (lives alone in [place], [place].) H&P Review of Systems - Review of Systems: Review Of Systems: See Below General: Reports: Fever, Chills, Malaise HEENT: Reports: Headaches Pulmonary: Reports: No Symptoms Cardiovascular: Reports: No Symptoms Gastrointestinal: Reports: Abdominal Pain, Constipation (bowel movement this morning, "like a rock"), Distension, Nausea, Vomiting (2-3 times yesterday) Genitourinary: Reports: No Symptoms Musculoskeletal: Reports: Muscle Pain, Muscle Stiffness Skin: Reports: No Symptoms Psychiatric: Reports: No Symptoms Neurological: Reports: No Symptoms Hematologic/Lymphatic: Reports: No Symptoms Immunologic: Reports: No Symptoms Exam - Exam Exam: See Below - Vital Signs Vital Signs: Last Vital Signs Temp 36.6 C 04/10/17 21:52 Pulse 74 04/10/17 21:52 Resp 18 04/10/17 21:52 BP 136/73 04/10/17 21:52 Pulse Ox 100 04/10/17 21:52 Weight: 79.379 kg - Exam Quality Assessment: Other (IV therapy) General: Alert, Oriented, Cooperative, Mild Distress HEENT: PERRLA, Hearing Intact, Mucosa Moist & [place], Nares Patent, Normal Nasal Septum, Posterior Pharynx Clear, Conjunctiva Clear, EOMI, EACs Clear, TMs Clear Neck: Supple, Trachea Midline, 2 Lungs: Clear to Auscultation, Normal Respiratory Effort Cardiovascular: Regular Rate, Regular Rhythm GI/Abdominal Exam: Normal Bowel Sounds, Soft, Tender (ismael-umbilical) (Male) Exam: Deferred Rectal (Males) Exam: Deferred Back Exam: Normal Inspection, Full Range of Motion, NT Extremities: Normal Inspection, Normal Range of Motion, Non-Tender, No Pedal Edema, Normal Capillary Refill Skin: Warm, Dry, Intact Neurological: Cranial Nerves Intact, Reflexes Equal Bilateral Neuro Extensive - Mental Status: Alert, Oriented x3, Normal Mood/Affect, Normal Cognition Neuro Extensive - Motor, Sensory, Reflexes: CN II-XII Intact, Normal Gait, Normal Reflexes Psychiatric: Alert, Normal Affect, Normal Mood - Patient Data Lab Results Last 24 hrs: Laboratory Results - last 24 hr 04/10/17 Range/Units 22:13 Urine Opiates Screen Positive H (NEGATIVE) Ur Oxycodone Screen Negative (NEGATIVE) Urine Methadone Screen Negative (NEGATIVE) Ur Propoxyphene Screen Negative (NEGATIVE) Ur Barbiturates Screen Negative (NEGATIVE) Ur Tricyclics Screen Positive H (NEGATIVE) Ur Phencyclidine Scrn Negative (NEGATIVE) Ur Amphetamine Screen Negative (NEGATIVE) U Methamphetamines Scrn Negative (NEGATIVE) Urine MDMA Screen Negative (NEGATIVE) U Benzodiazepines Scrn Negative (NEGATIVE) U Cocaine Metab Screen Negative (NEGATIVE) U Marijuana (THC) Screen Positive H (NEGATIVE) Result Diagrams: 04/10/17 16:56 04/10/17 16:56 *Q Meaningful Use (ADM) - VTE *Q VTE Criteria *Q: - Stroke *Q Stroke Criteria *Q: - AMI *Q AMI Criteria *Q: - Problem List (1) Abdominal pain SNOMED Code(s): 82189098 ICD Code: R10.9 - UNSPECIFIED ABDOMINAL PAIN Status: Acute Priority: High Current Visit: Yes Qualifiers: Abdominal location: left lower quadrant Qualified Code(s): R10.32 - Left lower quadrant pain (2) Colitis SNOMED Code(s): 92262868 ICD Code: K52.9 - NONINFECTIVE GASTROENTERITIS AND COLITIS, UNSPECIFIED Status: Acute Priority: High Current Visit: Yes Problem List Initiated/Reviewed/Updated: Yes Orders Last 24hrs: Active Orders 24 hr Category Date Time Status Patient Status [ADT] Routine ADT 04/10/17 22:18 Active Intake and Output [RC] QSHIFT Care 04/10/17 22:18 Active Notify Provider Vital Signs [RC] ASDIRECTED Care 04/10/17 22:18 Active Oxygen Therapy [RC] PRN Care 04/10/17 22:18 Active Pulse Oximetry [RC] PRN Care 04/10/17 22:18 Active RT Aerosol Therapy [RC] ASDIRECTED Care 04/10/17 22:18 Active Up ad Poonam [RC] ASDIRECTED Care 04/10/17 22:18 Active VTE/DVT Education [RC] Per Unit Routine Care 04/10/17 22:18 Active Vital Signs [RC] Q4H Care 04/10/17 22:18 Active Regular Diet [DIET] Diet 04/10/17 Breakfast Active BASIC METABOLIC PANEL,BMP [CHEM] AM Lab 04/11/17 05:11 Ordered CBC WITH AUTO DIFF [HEME] AM Lab 04/11/17 05:11 Ordered LACTIC ACID [CHEM] AM Lab 04/11/17 05:11 Ordered Acetaminophen [Tylenol] Med 04/10/17 22:18 Active 650 mg PO Q4H PRN Albuterol [Proventil Neb Soln] Med 04/10/17 22:18 Active 2.5 mg NEB Q4H PRN Bisacodyl [Dulcolax] Med 04/10/17 22:18 Active 5 mg PO DAILY PRN Ciprofloxacin in D5W [Cipro in D5W 400 MG/200 ML] 400 Med 04/10/17 22:18 Active mg Premix Bag 1 bag IV BID Docusate Sodium [Colace] Med 04/10/17 22:18 Active 100 mg PO BID Enoxaparin [Lovenox] Med 04/11/17 09:00 Active 40 mg SUBCUT DAILY HYDROmorphone [Dilaudid] Med 04/10/17 22:18 Active 1 mg IVPUSH Q2H PRN LORazepam [Ativan] Med 04/10/17 22:18 Active 1 mg IV Q6H PRN Ondansetron [Zofran ODT] Med 04/10/17 22:18 Active 4 mg PO Q6H PRN Ondansetron [Zofran] Med 04/10/17 22:18 Active 4 mg IV Q4H PRN Pantoprazole [ProTONIX IV] Med 04/10/17 22:18 Active 40 mg IVPUSH BID Sodium Chloride 0.9% [Normal Saline] 1,000 ml Med 04/10/17 22:18 Active IV ASDIRECTED Venlafaxine [Effexor XR] Med 04/11/17 09:00 Active 112.5 mg PO DAILY Zolpidem [Ambien] Med 04/11/17 21:00 Active 5 mg PO BEDTIME metroNIDAZOLE/Normal Saline [Flagyl 500 MG in NS 100 ML Med 04/11/17 04:00 Active ] 500 mg Premix Bag 1 bag IV Q8H oxyCODONE Med 04/10/17 22:18 Active 5 mg PO Q4H PRN Resuscitation Status Routine Resus Stat 04/10/17 21:52 Ordered Medication Orders Acetaminophen (Tylenol) 650 mg PO Q4H PRN PRN Reason: Pain (Mild 1-3)/fever Albuterol (Proventil Neb Soln) 2.5 mg NEB Q4H PRN PRN Reason: Shortness Of Breath/wheezing Bisacodyl (Dulcolax) 5 mg PO DAILY PRN PRN Reason: Constipation Docusate Sodium (Colace) 100 mg PO BID [facility] Enoxaparin Sodium (Lovenox) 40 mg SUBCUT DAILY RANDY Hydromorphone HCl (Dilaudid) 1 mg IVPUSH Q2H PRN PRN Reason: Abdominal Pain Ciprofloxacin/Dextrose 400 mg/ (Premix) 200 mls @ 200 mls/hr IV BID RANDY Metronidazole 500 mg/ Premix 100 mls @ 100 mls/hr IV Q8H RANDY Sodium Chloride (Normal Saline) 1,000 mls @ 125 mls/hr IV ASDIRECTED RANDY Lorazepam (Ativan) 1 mg IV Q6H PRN PRN Reason: Nausea/Vomiting Ondansetron HCl (Zofran Odt) 4 mg PO Q6H PRN PRN Reason: Nausea able to take PO Ondansetron HCl (Zofran) 4 mg IV Q4H PRN PRN Reason: Nausea/Vomiting Oxycodone HCl (Oxycodone) 5 mg PO Q4H PRN PRN Reason: Pain (moderate 4-6) Pantoprazole Sodium (Protonix Iv) 40 mg IVPUSH BID RANDY Venlafaxine HCl (Effexor Xr) 112.5 mg PO DAILY RANDY Zolpidem Tartrate (Ambien) 5 mg PO BEDTIME RANDY Assessment/Plan Comment:: ASSESSMENT / PLAN -This is a 52 year old male evaluated ER with complaints of abdominal pain, nausea, vomiting and body aches for the past two days. He reports feeling poorly with abdominal pain, nausea and vomiting. He continues to have nausea and left lower quadrant abdominal pain. No history of abdominal surgeries, examination abdomen is soft but tender in the left lower quadrant normal bowel sounds. reports "bad" heartburn with acid taste in mouth, denies any black or tarry stool Acuity = acute Site and laterality = abdominal pain Etiology = unclear etiology consider pseudomembranous colitis given his history Manifestations = body aches, fever Location of injury = Home Lab values = WBC elevated at 17.7 consistent leukocytosis, lactic acid normal at 1.9 CMP unremarkable urinalysis reveals 5-10 rbc's consists with a hematuria 5-10 wbc's consists of pyuria, CT scan of the abdomen was no acute process Meds; given 1 dose of Flagyl in the ED for presumptive pseudomembranous colitis , IV Zofran and Dilaudid for pain control. Plan: Colitis with abdominal pain, acid reflux -Admit Observation to [address] [place] [address] -IV Cipro 400mg every 12 hours -IV Flaygl 500mg every 8 hours -IV Protonix 40mg every 12 hours -IV fluids for rehydration NS at 125 mL per hour -Advise to notify nurses of any abdominal pain or other symptoms -And a.m. labs: CBC, BMP, lactic acid Maintenance issues -Orders home meds: hold except -Nutrition: Regular diet -Mendoza catheter not indicated at this time -DVT: Lovenox 40mg subcut -GI Prophalaxis; IV Protonix 40mg bid CODE STATUS: Full Admission status: Admit to Observation -I expect this patient to stay less than 24 hours, not to exceed 96 hours for evaluation and management of this problem. Disposition: home Primary care provider: Dr. Shine Hospitalist: Dr. Doan
[2017-04-10] MEDS: Docusate Sodium 100 MG Cap PO SCH (22:56)
[2017-04-10] MEDS: Zolpidem 5 MG Tab PO SCH (23:52)
[2017-04-10] MEDS: Acetaminophen 325 MG Tab PO PRN (23:52)
[2017-04-11] MEDS: Sodium Chloride 0.9% 1,000 ML IV SCH ×2 (01:46→10:33)
[2017-04-11] MEDS: metroNIDAZOLE/Normal Saline 500 MG in Premix Bag 1 BAG IV SCH ×3 (03:01→19:24)
[2017-04-11] MEDS: Acetaminophen 325 MG Tab PO PRN (05:28)
[2017-04-11] MEDS: oxyCODONE 5 MG Tab PO PRN ×4 (05:28→19:59)
[2017-04-11] MEDS: Ondansetron 4 MG Tab.DIS PO PRN ×2 (06:04→14:31)
[2017-04-11] MEDS: Docusate Sodium 100 MG Cap PO SCH ×2 (08:26→19:59)
[2017-04-11] MEDS: Enoxaparin 40 MG/0.4 ML Syringe SUBCUT SCH (08:27)
[2017-04-11] MEDS: VENLAFAXINE PO SCH ×2 (08:27)
[2017-04-11] MEDS ORDERED: Venlafaxine 37.5 MG Cap.ER PO SCH (09:00)
[2017-04-11] MEDS: Pantoprazole 40 MG Vial IVPUSH SCH ×2 (10:35→22:27)
[2017-04-11] MEDS: Ciprofloxacin in D5W 400 MG in Premix Bag 1 BAG IV SCH ×4 (10:45→22:27)
--- NOTE | 2017-04-11 11:55 | PCM.PN ---
- General Info Date of Service: 04/11/17 Subjective Update: Mr. Jay is a 52-year-old gentleman who is admitted last night through the emergency department, to observation status for further management of probable enteritis with nausea and vomiting of 24 hours duration. He also did experience some supraumbilical pain, that seems to have resolved and he has had no further nausea or vomiting. Vital signs have been stable and he has remained afebrile. White blood cell count was elevated on admission and has increased this morning to 20,000. ET scan of the abdomen and pelvis was performed in the emergency department and showed no obvious abnormalities to explain his current symptoms. - Review of Systems General: Reports: Weakness. Denies: Fever, Chills Pulmonary: Reports: No Symptoms Cardiovascular: Reports: No Symptoms Gastrointestinal: Reports: Decreased Appetite. Denies: Abdominal Pain, Difficulty Swallowing, Nausea, Vomiting - Patient Data Vitals - Most Recent: Last Vital Signs Temp 97.5 F 04/11/17 10:39 Pulse 64 04/11/17 10:39 Resp 16 04/11/17 10:39 BP 131/62 04/11/17 10:39 Pulse Ox 98 04/11/17 10:39 Weight - Most Recent: 175 lb I&O - Last 24 Hours: Intake & Output 04/10/17 04/11/17 04/11/17 22:59 06:59 14:59 Intake Total 1540 200 Output Total 900 Balance 640 200 Lab Results Last 24 Hours: Laboratory Results - last 24 hr 04/10/17 04/11/17 04/11/17 Range/Units 22:13 05:46 05:46 WBC 20.6 H (4.5-11.0) K/uL RBC 4.73 (4.30-5.90) M/uL Hgb 13.7 (12.0-15.0) g/dL Hct 41.1 (40.0-54.0) % MCV 87 (80-98) fL MCH 29 (27-31) pg MCHC 33 (32-36) % Plt Count 311 (150-400) K/uL Neut % (Auto) 74 H (36-66) % Lymph % (Auto) 17 L (24-44) % [place] % (Auto) 9 H (2-6) % Eos % (Auto) 0 L (2-4) % Baso % (Auto) 0 (0-1) % Sodium 142 (140-148) mmol/L Potassium 3.6 (3.6-5.2) mmol/L Chloride 107 (100-108) mmol/L Carbon Dioxide 23 (21-32) mmol/L Anion Gap 11.9 (5.0-14.0) mmol/L BUN 9 (7-18) mg/dL Creatinine 1.0 (0.8-1.3) mg/dL Est Cr Clr Drug Dosing 95.92 mL/min Estimated GFR (MDRD) > 60 (>60) Glucose 114 H (74-106) mg/dL Lactic Acid (0.4-2.0) mmol/L Calcium 8.5 (8.5-10.1) mg/dL Urine Opiates Screen Positive H (NEGATIVE) Ur Oxycodone Screen Negative (NEGATIVE) Urine Methadone Screen Negative (NEGATIVE) Ur Propoxyphene Screen Negative (NEGATIVE) Ur Barbiturates Screen Negative (NEGATIVE) Ur Tricyclics Screen Positive H (NEGATIVE) Ur Phencyclidine Scrn Negative (NEGATIVE) Ur Amphetamine Screen Negative (NEGATIVE) U Methamphetamines Scrn Negative (NEGATIVE) Urine MDMA Screen Negative (NEGATIVE) U Benzodiazepines Scrn Negative (NEGATIVE) U Cocaine Metab Screen Negative (NEGATIVE) U Marijuana (THC) Screen Positive H (NEGATIVE) 04/11/17 Range/Units 05:46 WBC (4.5-11.0) K/uL RBC (4.30-5.90) M/uL Hgb (12.0-15.0) g/dL Hct (40.0-54.0) % MCV (80-98) fL MCH (27-31) pg MCHC (32-36) % Plt Count (150-400) K/uL Neut % (Auto) (36-66) % Lymph % (Auto) (24-44) % [place] % (Auto) (2-6) % Eos % (Auto) (2-4) % Baso % (Auto) (0-1) % Sodium (140-148) mmol/L Potassium (3.6-5.2) mmol/L Chloride (100-108) mmol/L Carbon Dioxide (21-32) mmol/L Anion Gap (5.0-14.0) mmol/L BUN (7-18) mg/dL Creatinine (0.8-1.3) mg/dL Est Cr Clr Drug Dosing mL/min Estimated GFR (MDRD) (>60) Glucose (74-106) mg/dL Lactic Acid 2.1 H (0.4-2.0) mmol/L Calcium (8.5-10.1) mg/dL Urine Opiates Screen (NEGATIVE) Ur Oxycodone Screen (NEGATIVE) Urine Methadone Screen (NEGATIVE) Ur Propoxyphene Screen (NEGATIVE) Ur Barbiturates Screen (NEGATIVE) Ur Tricyclics Screen (NEGATIVE) Ur Phencyclidine Scrn (NEGATIVE) Ur Amphetamine Screen (NEGATIVE) U Methamphetamines Scrn (NEGATIVE) Urine MDMA Screen (NEGATIVE) U Benzodiazepines Scrn (NEGATIVE) U Cocaine Metab Screen (NEGATIVE) U Marijuana (THC) Screen (NEGATIVE) Med Orders - Current: Current Medications Acetaminophen (Tylenol) 650 mg PO Q4H PRN PRN Reason: Pain (Mild 1-3)/fever Last Admin: 04/11/17 05:28 Dose: 650 mg Albuterol (Proventil Neb Soln) 2.5 mg NEB Q4H PRN PRN Reason: Shortness Of Breath/wheezing Bisacodyl (Dulcolax) 5 mg PO DAILY PRN PRN Reason: Constipation Docusate Sodium (Colace) 100 mg PO BID [facility] Last Admin: 04/11/17 08:26 Dose: 100 mg Enoxaparin Sodium (Lovenox) 40 mg SUBCUT DAILY [facility] Last Admin: 04/11/17 08:27 Dose: 40 mg Hydromorphone HCl (Dilaudid) 1 mg IVPUSH Q2H PRN PRN Reason: Abdominal Pain Last Admin: 04/11/17 05:56 Dose: 1 mg Metronidazole 500 mg/ Premix 100 mls @ 100 mls/hr IV Q8H [facility] Last Admin: 04/11/17 03:01 Dose: 100 mls/hr Ciprofloxacin/Dextrose 400 mg/ (Premix) 200 mls @ 200 mls/hr IV Q12H [facility] Last Admin: 04/11/17 10:45 Dose: 200 mls/hr Ondansetron HCl (Zofran Odt) 4 mg PO Q6H PRN PRN Reason: Nausea able to take PO Last Admin: 04/11/17 06:04 Dose: 4 mg Ondansetron HCl (Zofran) 4 mg IV Q4H PRN PRN Reason: Nausea/Vomiting Oxycodone HCl (Oxycodone) 5 mg PO Q4H PRN PRN Reason: Pain (moderate 4-6) Last Admin: 04/11/17 10:43 Dose: 5 mg Pantoprazole Sodium (Protonix Iv) 40 mg IVPUSH Q12H [facility] Last Admin: 04/11/17 10:35 Dose: 40 mg Venlafaxine HCl 37.5 mg/ (Venlafaxine HCl 75 mg) 112.5 mg PO DAILY [facility] Last Admin: 04/11/17 08:27 Dose: 112.5 mg Zolpidem Tartrate (Ambien) 5 mg PO BEDTIME [facility] Last Admin: 04/10/17 23:52 Dose: 5 mg Discontinued Medications Hydromorphone HCl (Dilaudid) 1 mg IVPUSH ONETIME ONE Stop: 04/10/17 18:34 Last Admin: 04/10/17 18:44 Dose: 1 mg Hydromorphone HCl (Dilaudid) 0.5 mg IVPUSH ONETIME ONE Stop: 04/10/17 19:54 Last Admin: 04/10/17 20:27 Dose: 0.5 mg Hydromorphone HCl (Dilaudid) 1 mg IVPUSH ONETIME ONE Stop: 04/10/17 21:47 Last Admin: 04/10/17 22:05 Dose: 1 mg Sodium Chloride (Normal Saline) 1,000 mls @ 999 mls/hr IV ASDIRECTED [facility] Last Admin: 04/10/17 18:45 Dose: 999 mls/hr Sodium Chloride (Normal Saline) 1,000 mls @ 999 mls/hr IV ASDIRECTED [facility] Last Admin: 04/10/17 20:31 Dose: 999 mls/hr Sodium Chloride (Normal Saline) 100 mls @ 3 mls/sec IV ASDIRECTED [facility] Last Admin: 04/10/17 18:58 Dose: 3 mls/sec Metronidazole 500 mg/ Premix 100 mls @ 100 mls/hr IV ONETIME ONE Stop: 04/10/17 20:51 Last Admin: 04/10/17 20:28 Dose: 100 mls/hr Ciprofloxacin/Dextrose 400 mg/ (Premix) 200 mls @ 200 mls/hr IV BID [facility] Last Admin: 04/10/17 22:56 Dose: 200 mls/hr Sodium Chloride (Normal Saline) 1,000 mls @ 125 mls/hr IV ASDIRECTED [facility] Last Admin: 04/11/17 10:33 Dose: 125 mls/hr Iopamidol (Isovue-300 (61%)) 120 ml IV . DIRECTED [facility] Last Admin: 04/10/17 18:58 Dose: 120 ml Ketorolac Tromethamine (Toradol) 30 mg IVPUSH ONETIME ONE Stop: 04/10/17 16:45 Last Admin: 04/10/17 16:58 Dose: 30 mg Lorazepam (Ativan) 1 mg IV Q6H PRN PRN Reason: Nausea/Vomiting Ondansetron HCl (Zofran) 4 mg IVPUSH ONETIME ONE Stop: 04/10/17 16:46 Last Admin: 04/10/17 16:58 Dose: 4 mg Ondansetron HCl (Zofran) 4 mg IVPUSH ONETIME ONE Stop: 04/10/17 18:34 Last Admin: 04/10/17 18:43 Dose: 4 mg Pantoprazole Sodium (Protonix Iv) 40 mg IVPUSH BID [facility] Last Admin: 04/10/17 22:55 Dose: 40 mg Prochlorperazine Edisylate (Compazine) 5 mg IVPUSH ONETIME ONE Stop: 04/10/17 19:54 Last Admin: 04/10/17 20:27 Dose: 5 mg Zolpidem Tartrate (Ambien) 5 mg PO BEDTIME [facility] - Exam Quality Assessment: DVT Prophylaxis General: Alert, Oriented, Cooperative, Mild Distress Lungs: Clear to Auscultation, Normal Respiratory Effort Cardiovascular: Regular Rate, Regular Rhythm, No Murmurs GI/Abdominal Exam: Soft, No Organomegaly, Tender. No: Distended, Guarding, Rigid, Rebound Extremities: Non-Tender, No Pedal Edema Skin: Warm, Dry, Intact - Problem List Review Problem List Initiated/Reviewed/Updated: Yes - My Orders Last 24 Hours: My Active Orders 04/11/17 11:48 Convert IV to Saline Lock [OM.PC] Routine 04/12/17 05:00 BASIC METABOLIC PANEL,BMP [CHEM] Timed CBC WITH AUTO DIFF [HEME] Timed - Plan Plan:: ASSESSMENT / PLAN ENTERITIS-associated with nausea, vomiting, and abdominal pain. Improved since admission but still feels very weak mild white blood cell count has increased from 17,000-20,000. -Continue IV Flagyl and ciprofloxacin -IV Protonix 40mg every 12 hours -Saline lock IV Maintenance issues -Nutrition: Regular diet -Mendoza catheter not indicated at this time -DVT: Lovenox 40mg subcut -GI Prophalaxis; IV Protonix 40mg bid CODE STATUS: Full Admission status: He will be changed to inpatient status, will require at least one more night of hospitalization for management of enteritis Disposition: home Primary care provider: Dr. Shine Hospitalist: Dr. Doan
[2017-04-11] MEDS: Cyclobenzaprine 10 MG Tab PO PRN (17:49)
[2017-04-11] MEDS: Zolpidem 5 MG Tab PO SCH (19:59)
[2017-04-11] MEDS ORDERED: Zolpidem 5 MG Tab PO SCH (21:00)
[2017-04-12] MEDS: metroNIDAZOLE/Normal Saline 500 MG in Premix Bag 1 BAG IV SCH ×2 (03:48→11:29)
[2017-04-12] MEDS: oxyCODONE 5 MG Tab PO PRN ×2 (03:53→09:08)
[2017-04-12] MEDS: Cyclobenzaprine 10 MG Tab PO PRN (07:50)
[2017-04-12] MEDS: Docusate Sodium 100 MG Cap PO SCH (09:08)
[2017-04-12] MEDS: VENLAFAXINE PO SCH ×2 (09:09)
[2017-04-12] MEDS: Enoxaparin 40 MG/0.4 ML Syringe SUBCUT SCH (09:09)
[2017-04-12] MEDS: Pantoprazole 40 MG Vial IVPUSH SCH (09:10)
--- NOTE | 2017-04-12 09:14 | CR ---
Chest 2V HISTORY: elevated wbc. COMPARISON: 10/11/2016 FINDINGS: Lungs are hyperinflated consistent with COPD. No acute infiltrate is identified. Cardiomediastinal si lhouette is within normal limits. No vascular redistribution or pleural fluid can be seen. Bony struc tures and soft tissues are unremarkable. IMPRESSION: No acute chest abnormality or significant interval change is identified.
--- NOTE | 2017-04-12 09:21 | CR ---
Chest 2V HISTORY: Leukocytosis, cough, follow-up after hydration COMPARISON: 04/10/2017 FINDINGS: Lungs are hyperinflated with flattening of the diaphragms suggesting a component of COPD. Cardiomedia stinal silhouette is within normal limits. No vascular redistribution or pleural fluid can be seen. B timothy structures and soft tissues are stable. IMPRESSION: Hyperinflation consistent with COPD. No acute chest abnormality or significant interval change is lane ntified.
[2017-04-12] MEDS: Ciprofloxacin in D5W 400 MG in Premix Bag 1 BAG IV SCH ×2 (10:06)
[2017-04-12 10:50] VITALS: BP 137/79
--- NOTE | 2017-04-12 12:45 | PCM.DCSUM1 ---
Discharge Summary - Hospital Course Brief History: 52-year-old male with history ofchronic back pain who presented with abdominal pain, nausea vomiting and was admitted for management of enteritis - Discharge Data Discharge Date: 04/12/17 Discharge Disposition: Home, Self-Care 01 Condition: Fair - Discharge Diagnosis/Problem(s) (1) Enteritis SNOMED Code(s): 19002444 ICD Code: K52.9 - NONINFECTIVE GASTROENTERITIS AND COLITIS, UNSPECIFIED Status: Acute - Patient Summary/Data Hospital Course: Stas presented to the emergency room with abdominal pain, nausea and vomiting. Extensive workup in the emergency room was essentially unremarkable with fairly normal laboratory studies other than a white blood cell count of [address] of the abdomen and pelvis. he was noted to be febrile in the emergency room. there was concern for pseudomembranous colitis based on his history. He was empirically given antibiotics and admitted to the hospital. antibiotic coverage consisted of ciprofloxacin and metronidazole. He was given IV fluids. Over the next 24 hours he had significant improvement in his symptoms with near resolution of the nausea and abdominal pain. He was tolerating his diet well and his fever curve was improving. He had not had further diarrhea during the hospital stay. Over the second half of the hospital stay he had additional improvement. His diet was advanced to a regular diet which he tolerated well. He has not had further nausea, vomiting or diarrhea. His abdominal pain has essentially resolved at this point. We were never able to collect a diarrhea stool for Clostridium difficile testing. At this point I' m inclined to continue his antibiotic therapy for a short period though we were never able to find a definitive infection. He will receive for several additional days of antibiotic therapy with the ciprofloxacin and metronidazole. He will be discharged home with follow-up later this week unless symptoms worsen in the meantime. He has been afebrile since emergency room presentation. - Patient Instructions Diet: Regular Diet as Tolerated Diet, Other: soft and bland foods for the next several days Activity: As Tolerated Driving: May Drive Today Showering/Bathing: May Shower Notify Provider of: Fever, Increased Pain, Nausea and/or Vomiting Other/Special Instructions: 1. You were in the hospital for management of enteritis. I suspect this was caused by a bacterial infection but a viral infection is also possible. You have been improving with antibiotic therapy and I did recommend additional antibiotic treatment as outlined below. - Ciprofloxacin 500 mg, take 1 tablet twice daily. Your next dose is due tonight. -Metronidazole 500 mg, take 1 tablet 3 times daily. Your next dose is due tonight. 2. Continue your other home medications as previously prescribed. 3. Please seek medical attention if you develop fever greater than 101, have severe abdominal pain, persistent vomiting or persistent diarrhea. - Discharge Plan Prescriptions/Med Rec: Ciprofloxacin HCl [Cipro] 500 mg PO BID #9 tablet metroNIDAZOLE [Metronidazole] 500 mg PO TID #13 tablet Home Medications: Home Meds Meloxicam [Mobic] 7.5 mg PO DAILY 01/28/14 [History] Amitriptyline [Elavil] 1 tab PO BEDTIME 10/11/16 [History] Cyclobenzaprine [Flexeril] 1 tab PO BID 10/11/16 [History] tiZANidine 1 tab PO BID 10/11/16 [History] Venlafaxine HCl [Venlafaxine HCl ER] 112.5 mg PO DAILY 10/12/16 [History] Ciprofloxacin HCl [Cipro] 500 mg PO BID #9 tablet 04/12/17 [Rx] metroNIDAZOLE [Metronidazole] 500 mg PO TID #13 tablet 04/12/17 [Rx] Patient Handouts: Ciprofloxacin tablets, Diarrhea, Adult, [id number], Metronidazole tablets or capsules Referrals: Jordy Shine MD [Primary Care Provider] - (follow-up in 3-5 days if your symptoms do not continue to improve or if they get worse) - Discharge Summary/Plan Comment DC Time >30 min.: No (25) - Patient Data Vitals - Most Recent: Last Vital Signs Temp 36.7 C 04/12/17 10:48 Pulse 64 04/12/17 10:48 Resp 18 04/12/17 10:48 BP 137/79 04/12/17 10:48 Pulse Ox 98 04/12/17 10:48 Weight - Most Recent: 81.556 kg I&O - Last 24 hours: Intake & Output 04/11/17 04/12/17 04/12/17 22:59 06:59 14:59 Intake Total 4803 345 2842 Balance 4716 442 1646 Lab Results - Last 24 hrs: Laboratory Results - last 24 hr 04/12/17 04/12/17 Range/Units 05:45 05:45 WBC 8.8 (4.5-11.0) K/uL RBC 4.27 L (4.30-5.90) M/uL Hgb 12.3 (12.0-15.0) g/dL Hct 37.9 L (40.0-54.0) % MCV 89 (80-98) fL MCH 29 (27-31) pg MCHC 33 (32-36) % Plt Count 265 (150-400) K/uL Neut % (Auto) 59 (36-66) % Lymph % (Auto) 29 (24-44) % [place] % (Auto) 10 H (2-6) % Eos % (Auto) 1 L (2-4) % Baso % (Auto) 1 (0-1) % Sodium 142 (140-148) mmol/L Potassium 3.9 (3.6-5.2) mmol/L Chloride 109 H (100-108) mmol/L Carbon Dioxide 28 (21-32) mmol/L Anion Gap 8.9 (5.0-14.0) mmol/L BUN 7 (7-18) mg/dL Creatinine 0.9 (0.8-1.3) mg/dL Est Cr Clr Drug Dosing 106.57 mL/min Estimated GFR (MDRD) > 60 (>60) Glucose 101 (74-106) mg/dL Calcium 8.3 L (8.5-10.1) mg/dL Med Orders - Current: Current Medications Acetaminophen (Tylenol) 650 mg PO Q4H PRN PRN Reason: Pain (Mild 1-3)/fever Last Admin: 04/11/17 05:28 Dose: 650 mg Albuterol (Proventil Neb Soln) 2.5 mg NEB Q4H PRN PRN Reason: Shortness Of Breath/wheezing Bisacodyl (Dulcolax) 5 mg PO DAILY PRN PRN Reason: Constipation Cyclobenzaprine HCl (Flexeril) 10 mg PO BID PRN PRN Reason: Pain Last Admin: 04/12/17 07:50 Dose: 10 mg Docusate Sodium (Colace) 100 mg PO BID [facility] Last Admin: 04/12/17 09:08 Dose: 100 mg Enoxaparin Sodium (Lovenox) 40 mg SUBCUT DAILY [facility] Last Admin: 04/12/17 09:09 Dose: 40 mg Hydromorphone HCl (Dilaudid) 1 mg IVPUSH Q2H PRN PRN Reason: Abdominal Pain Last Admin: 04/11/17 05:56 Dose: 1 mg Metronidazole 500 mg/ Premix 100 mls @ 100 mls/hr IV Q8H [facility] Last Admin: 04/12/17 11:29 Dose: 100 mls/hr Ciprofloxacin/Dextrose 400 mg/ (Premix) 200 mls @ 200 mls/hr IV Q12H [facility] Last Admin: 04/12/17 10:06 Dose: 200 mls/hr Ondansetron HCl (Zofran Odt) 4 mg PO Q6H PRN PRN Reason: Nausea able to take PO Last Admin: 04/11/17 14:31 Dose: 4 mg Ondansetron HCl (Zofran) 4 mg IV Q4H PRN PRN Reason: Nausea/Vomiting Oxycodone HCl (Oxycodone) 5 mg PO Q4H PRN PRN Reason: Pain (moderate 4-6) Last Admin: 04/12/17 09:08 Dose: 5 mg Pantoprazole Sodium (Protonix Iv) 40 mg IVPUSH Q12H [facility] Last Admin: 04/12/17 09:10 Dose: 40 mg Venlafaxine HCl 37.5 mg/ (Venlafaxine HCl 75 mg) 112.5 mg PO DAILY [facility] Last Admin: 04/12/17 09:09 Dose: 112.5 mg Zolpidem Tartrate (Ambien) 5 mg PO BEDTIME [facility] Last Admin: 04/11/17 19:59 Dose: 5 mg Discontinued Medications Hydromorphone HCl (Dilaudid) 1 mg IVPUSH ONETIME ONE Stop: 04/10/17 18:34 Last Admin: 04/10/17 18:44 Dose: 1 mg Hydromorphone HCl (Dilaudid) 0.5 mg IVPUSH ONETIME ONE Stop: 04/10/17 19:54 Last Admin: 04/10/17 20:27 Dose: 0.5 mg Hydromorphone HCl (Dilaudid) 1 mg IVPUSH ONETIME ONE Stop: 04/10/17 21:47 Last Admin: 04/10/17 22:05 Dose: 1 mg Sodium Chloride (Normal Saline) 1,000 mls @ 999 mls/hr IV ASDIRECTED [facility] Last Admin: 04/10/17 18:45 Dose: 999 mls/hr Sodium Chloride (Normal Saline) 1,000 mls @ 999 mls/hr IV ASDIRECTED [facility] Last Admin: 04/10/17 20:31 Dose: 999 mls/hr Sodium Chloride (Normal Saline) 100 mls @ 3 mls/sec IV ASDIRECTED [facility] Last Admin: 04/10/17 18:58 Dose: 3 mls/sec Metronidazole 500 mg/ Premix 100 mls @ 100 mls/hr IV ONETIME ONE Stop: 04/10/17 20:51 Last Admin: 04/10/17 20:28 Dose: 100 mls/hr Ciprofloxacin/Dextrose 400 mg/ (Premix) 200 mls @ 200 mls/hr IV BID [facility] Last Admin: 04/10/17 22:56 Dose: 200 mls/hr Sodium Chloride (Normal Saline) 1,000 mls @ 125 mls/hr IV ASDIRECTED [facility] Last Admin: 04/11/17 10:33 Dose: 125 mls/hr Iopamidol (Isovue-300 (61%)) 120 ml IV . DIRECTED [facility] Last Admin: 04/10/17 18:58 Dose: 120 ml Ketorolac Tromethamine (Toradol) 30 mg IVPUSH ONETIME ONE Stop: 04/10/17 16:45 Last Admin: 04/10/17 16:58 Dose: 30 mg Lorazepam (Ativan) 1 mg IV Q6H PRN PRN Reason: Nausea/Vomiting Ondansetron HCl (Zofran) 4 mg IVPUSH ONETIME ONE Stop: 04/10/17 16:46 Last Admin: 04/10/17 16:58 Dose: 4 mg Ondansetron HCl (Zofran) 4 mg IVPUSH ONETIME ONE Stop: 04/10/17 18:34 Last Admin: 04/10/17 18:43 Dose: 4 mg Pantoprazole Sodium (Protonix Iv) 40 mg IVPUSH BID [facility] Last Admin: 04/10/17 22:55 Dose: 40 mg Prochlorperazine Edisylate (Compazine) 5 mg IVPUSH ONETIME ONE Stop: 04/10/17 19:54 Last Admin: 04/10/17 20:27 Dose: 5 mg Zolpidem Tartrate (Ambien) 5 mg PO BEDTIME [facility] - Exam Quality Assessment: Denies: Supplemental Oxygen General: Reports: Alert, Oriented, Cooperative, No Acute Distress Neck: Reports: Supple Lungs: Reports: Normal Respiratory Effort GI/Abdominal Exam: Soft, No Distention Extremities: No Pedal Edema Psy/Mental Status: Reports: Alert, Normal Affect *Q Meaningful Use (DIS) - VTE *Q VTE Criteria *Q: - Stroke *Q Stroke Criteria *Q: - AMI *Q AMI Criteria *Q:
== END 2017-04-12 13:30 | disposition home or self-care (01) | DRG 392 ==
LOC: JP.ED 15:28 → JP.MS 21:50 → OBSVTOIN 21:51
PROVIDERS: ADMIT Hospitalist; ATTEND Hospitalist
DX: K52.9 Noninfective gastroenteritis and colitis, unspecified (principal); K21.9 Gastro-esophageal reflux disease without esophagitis; Z87.891 Personal history of nicotine dependence; R10.32 Left lower quadrant pain; R52 Pain, unspecified; R11.2 Nausea with vomiting, unspecified; M54.9 Dorsalgia, unspecified; G89.29 Other chronic pain; F32.9 Major depressive disorder, single episode, unspecified; Z87.820 Personal history of traumatic brain injury; Z88.1 Allergy status to other antibiotic agents; Z88.0 Allergy status to penicillin; Z88.8 Allergy status to other drugs, medicaments and biological substances; F12.90 Cannabis use, unspecified, uncomplicated
CPT/HCPCS: 36415; 71046 ×2; 74177; 80053; 81001; 83605; 85025; 87804 ×2; 96361; 96365; 96375; 96376; 99285; J0780; J1170 ×2; J1885; J2405 ×2; J7030; J7040 ×3; 80048; 80305; 96366; 96372; A9270-GY; C9113; G0378; J0744; J1650

== ENCOUNTER 2017-05-31 15:48 | Emergency (ER) | payer MEDICARE, OTHER ==
[2017-05-31] MEDS ORDERED: Ondansetron 4 MG/2 ML SDV IVPUSH ONE (16:21)
[2017-05-31] MEDS ORDERED: HYDROmorphone 0.5 MG/0.5 ML Syringe IVPUSH ONE (16:21)
--- NOTE | 2017-05-31 16:29 | EDM.PDOC ---
ED HPI GENERAL MEDICAL PROBLEM - General Chief Complaint: Abdominal Pain Stated Complaint: LEFT SIDE ABD PAIN,CHILLS,SWEATS Time Seen by Provider: 05/31/17 16:00 Source of Information: Reports: Patient History Limitations: Reports: No Limitations - History of Present Illness INITIAL COMMENTS - FREE TEXT/NARRATIVE: 52-year-old male who developed nausea and vomiting 5 hours ago, chills, feels dehydrated and weak. He had a normal bowel movement this morning, symptoms didn' t start until 11:00 with nausea and he has vomited several times. No blood in the emesis. A very similar syndrome happened to him a month ago, a complete workup was negative. He is having some moderate abdominal cramping. Some radiation to his back. He points to the left upper quadrant of the abdomen as the source of discomfort. Onset: Sudden (Fairly sudden onset at 11 AM) Location: Reports: Abdomen Severity: Moderate Associated Symptoms: Reports: Loss of Appetite, Malaise, Nausea/Vomiting, Weakness. Denies: Headaches, Shortness of Breath abdominal Pain Score (Numeric/FACES): 5 - Related Data Allergies Allergy/AdvReac Type Severity Reaction Status Date / Time cefazolin sodium [From Ancef] Allergy Severe Anaphylactic Verified 05/31/17 16: 02 Shock Penicillins Allergy Severe Anaphylactic Verified 05/31/17 16:02 Shock succinylcholine chloride Allergy Severe Anaphylactic Verified 05/31/17 16:02 [From Anectine] Shock Home Meds: Home Meds Meloxicam [Mobic] 7.5 mg PO DAILY 01/28/14 [History] Amitriptyline [Elavil] 1 tab PO BEDTIME 10/11/16 [History] Cyclobenzaprine [Flexeril] 1 tab PO BID 10/11/16 [History] tiZANidine 1 tab PO BID 10/11/16 [History] Venlafaxine HCl [Venlafaxine HCl ER] 112.5 mg PO DAILY 10/12/16 [History] metroNIDAZOLE [Metronidazole] 500 mg PO TID #13 tablet 04/12/17 [Rx] Ondansetron HCl [Zofran] 4 mg PO ASDIRECTED 05/31/17 [History] Past Medical History HEENT History: Reports: None Gastrointestinal History: Reports: Cholelithiasis Musculoskeletal History: Reports: Back Pain, Chronic Neurological History: Reports: Brain Injury, Head Trauma Psychiatric History: Reports: Depression Dermatologic History: Reports: None - Infectious Disease History Infectious Disease History: Reports: Chicken Pox - Past Surgical History HEENT Surgical History: Reports: Tonsillectomy GI Surgical History: Reports: Appendectomy Other Neurological Surgeries/Procedures: 3 head 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 Other Musculoskeletal Surgeries/Procedures:: leg pain, shooting pains in left testicle Dermatological Surgical History: Reports: Other (See Below) Social & Family History - Family History Family Medical History: Noncontributory HEENT: Reports: None Respiratory: Reports: None GI: Reports: None : Reports: None OBGYN: Reports: None Neurological: Reports: None Psychiatric: Reports: None - Tobacco Use Smoking Status *Q: Never Smoker Years of Tobacco use: 20 Packs/Tins Daily: 1 Used Tobacco, but Quit: Yes Month/Year Tobacco Last Used: years ago Second Hand Smoke Exposure: No - Caffeine Use Caffeine Use: Reports: Soda Caffeine Use Comment: 6 pack of mountain dew a day - Alcohol Use Days Per Week of Alcohol Use: 0 - Recreational Drug Use Recreational Drug Use: Yes Drug Use in Last 12 Months: Yes Recreational Drug Type: Reports: Marijuana/Hashish Recreational Drug Use Frequency: Weekly Recreational Drug Last Use: yesterday - Living Situation & Occupation Living situation: Reports: Single (lives alone in [place], [place].) ED ROS GENERAL - Review of Systems Review Of Systems: See Below Constitutional: Reports: Chills, Malaise, Weakness. Denies: Fever HEENT: Reports: No Symptoms Respiratory: Denies: Shortness of Breath, Cough (1) Cardiovascular: Reports: Lightheadedness. Denies: Chest Pain GI/Abdominal: Reports: Abdominal Pain, Nausea, Vomiting : Reports: No Symptoms Musculoskeletal: Reports: Back Pain Skin: Reports: No Symptoms Neurological: Reports: Dizziness. Denies: Headache Psychiatric: Reports: Anxiety ED EXAM, GI/ABD - Physical Exam Exam: See Below Exam Limited By: No Limitations General Appearance: Alert, Anxious, Mild Distress (Patient does look fairly uncomfortable) Eyes: Bilateral: Normal Appearance Throat/Mouth: Normal Inspection (Hydration appears normal) Respiratory/Chest: No Respiratory Distress, Lungs Clear Cardiovascular: Regular Rate, Rhythm. No: Tachycardia GI/Abdominal Exam: Normal Bowel Sounds, Soft, Tender (He does recreate tenderness to palpation especially across the left abdomen) Extremities: Normal Inspection. No: Pedal Edema Neurological: Alert, Oriented Psychiatric: Anxious Skin Exam: Warm, Dry Course - Vital Signs Last Recorded V/S: Last Vital Signs Temp 97.0 F 05/31/17 15:56 Pulse 76 05/31/17 18:00 Resp 16 05/31/17 15:56 BP 164/85 H 05/31/17 18:00 Pulse Ox 99 05/31/17 18:00 - Orders/Labs/Meds Labs: Laboratory Tests 05/31/17 05/31/17 Range/Units 16:35 16:35 WBC 17.0 H (4.5-11.0) K/uL RBC 4.96 (4.30-5.90) M/uL Hgb 14.3 D (12.0-15.0) g/dL Hct 41.8 (40.0-54.0) % MCV 84 (80-98) fL MCH 29 (27-31) pg MCHC 34 (32-36) % Plt Count 318 (150-400) K/uL Neut % (Auto) 86 H (36-66) % Lymph % (Auto) 9 L (24-44) % [place] % (Auto) 4 (2-6) % Eos % (Auto) 0 L (2-4) % Baso % (Auto) 0 (0-1) % Sodium 140 (140-148) mmol/L Potassium 3.5 L (3.6-5.2) mmol/L Chloride 101 (100-108) mmol/L Carbon Dioxide 28 (21-32) mmol/L Anion Gap 14.5 H (5.0-14.0) mmol/L BUN 8 (7-18) mg/dL Creatinine 1.1 (0.8-1.3) mg/dL Est Cr Clr Drug Dosing 88.87 mL/min Estimated GFR (MDRD) > 60 (>60) Glucose 131 H (74-106) mg/dL Calcium 8.8 (8.5-10.1) mg/dL Total Bilirubin 0.3 (0.2-1.0) mg/dL AST 20 (15-37) U/L ALT 27 (12-78) U/L Alkaline Phosphatase 90 (46-116) U/L Total Protein 7.3 (6.4-8.2) g/dL Albumin 4.3 (3.4-5.0) g/dL Globulin 3.0 (2.3-3.5) g/dL Albumin/Globulin Ratio 1.4 (1.2-2.2) Amylase 58 (25-115) U/L Lipase 106 (73-393) U/L Meds: Medications Discontinued Medications Generic Name Dose Route Start Last Admin Trade Name Mario Alberto PRN Reason Stop Dose Admin Hydromorphone HCl 0.5 mg 05/31/17 16:21 Dilaudid IVPUSH 05/31/17 16:22 ONETIME ONE Sodium Chloride 1,000 mls @ 1,000 mls/hr 05/31/17 16:30 05/31/17 16:44 Normal Saline IV 1,000 mls/hr ASDIRECTED RANDY Administration Ondansetron HCl 4 mg 05/31/17 16:21 05/31/17 16:44 Zofran IVPUSH 05/31/17 16:22 4 mg ONETIME ONE Administration - Re-Assessments/Exams Free Text/Narrative Re-Assessment/Exam: 05/31/17 16:28 CBC, CMP, amylase and lipase were obtained, we attempted to get a urine drug screen but the patient "couldn't urinate". He has been positive for marijuana the last 2 visits. 05/31/17 18:35 Patient was given 4 mg of IV Zofran and I did order 0.5 mg of IV Dilaudid but I was hoping to get a urine to run the drug screen and he couldn't provide a urine while he was here. After the Zofran he slept soundly for over half an hour , when he woke he was still having some cramping and was insisting that he needed to be admitted. His white count was moderately elevated from the vomiting but otherwise they were stable and normal, he was discharged with additional doses of Zofran. Reviewing his chart this is likely hyperemesis cannabis, I discussed that with them in I'm not sure he agreed. He will return tomorrow if not improving. Departure - Departure Time of Disposition: 18:57 Disposition: Home, Self-Care 01 Condition: Good Clinical Impression: Nausea with vomiting, Abdominal pain - Discharge Information Instructions: Abdominal Pain, Adult, [id number], Nausea and Vomiting, Adult Referrals: Jordy Shine MD [Primary Care Provider] - Forms: ED Department Discharge Care Plan Goals: Clear liquids only for the next 12-24 hours and increase activity and diet as tolerated. Use Zofran under your tongue as prescribed for nausea, avoid marijuana use, and return in 12-24 hours if not improving satisfactorily.
[2017-05-31] MEDS ORDERED: Sodium Chloride 0.9% 1,000 ML IV SCH (16:30)
[2017-05-31 18:00] VITALS: BP 164/85
== END 2017-05-31 18:57 | disposition home or self-care (01) ==
LOC: JP.ED 15:48
DX: R11.2 Nausea with vomiting, unspecified (principal); R10.9 Unspecified abdominal pain; Z88.0 Allergy status to penicillin; Z88.8 Allergy status to other drugs, medicaments and biological substances; Z79.899 Other long term (current) drug therapy; Z90.49 Acquired absence of other specified parts of digestive tract
CPT/HCPCS: 36415; 80053; 82150; 83690; 85025; 96361; 96374; 99284; J2405; J7040

== ENCOUNTER 2018-05-26 19:43 | Emergency (ER) | payer MEDICARE, OTHER ==
[2018-05-26] MEDS ORDERED: Lactated Ringers 1,000 ML IV ONE ×2 (20:52→21:57)
[2018-05-26] MEDS ORDERED: Atropine/Diphenoxylate 0.025-2.5 MG Tab PO ONE (20:53)
[2018-05-26] MEDS ORDERED: Ondansetron 4 MG/2 ML SDV IVPUSH ONE (20:53)
[2018-05-26] MEDS ORDERED: Acetaminophen 500 MG Tab PO ONE (20:54)
--- NOTE | 2018-05-26 20:55 | EDM.PDOC ---
ED HPI GENERAL MEDICAL PROBLEM - General Chief Complaint: Gastrointestinal Problem Stated Complaint: FEVER/CHILLS,VOMITING,DIARRHEA Time Seen by Provider: 05/26/18 20:45 Source of Information: Reports: Patient, Old Records History Limitations: Reports: No Limitations - History of Present Illness INITIAL COMMENTS - FREE TEXT/NARRATIVE: 53 yo male here with nausea, vomiting, and diarrhea that began about 0400h today. No fever. No bleeding. Has chronic back pain from disc dz. No known exposures. Sometimes dizzy with standing. Onset: Today Onset Date: 05/26/18 Onset Time: 04:00 Duration: Hour(s):, Waxing/Waning Location: Reports: Abdomen Quality: Reports: Other (minimal cramping with diarrhea) Severity: Mild Improves with: Reports: None Worsens with: Reports: Other (eating) Context: Reports: Other (unknown) Associated Symptoms: Reports: Loss of Appetite, Nausea/Vomiting, Weakness. Denies: Fever/Chills Treatments ANESTHETIC ASSISTANT: Reports: Other (see below) (none) periumbilical ABD Pain Score (Numeric/FACES): 7 - Related Data Allergies Allergy/AdvReac Type Severity Reaction Status Date / Time cefazolin sodium [From Ancef] Allergy Severe Anaphylactic Verified 05/26/18 20: 30 Shock Penicillins Allergy Severe Anaphylactic Verified 05/26/18 20:30 Shock succinylcholine chloride Allergy Severe Anaphylactic Verified 05/26/18 20:30 [From Anectine] Shock Home Meds: Home Meds Meloxicam [Mobic] 7.5 mg PO DAILY 01/28/14 [History] Amitriptyline [Elavil] 1 tab PO BEDTIME 10/11/16 [History] Cyclobenzaprine [Flexeril] 1 tab PO BID PRN 10/11/16 [History] tiZANidine 1 tab PO BID PRN 10/11/16 [History] Venlafaxine HCl [Venlafaxine HCl ER] 112.5 mg PO DAILY 10/12/16 [History] Ondansetron HCl [Zofran] 4 mg PO ASDIRECTED PRN 05/31/17 [History] Past Medical History HEENT History: Reports: None Gastrointestinal History: Reports: Cholelithiasis Musculoskeletal History: Reports: Back Pain, Chronic, Fracture Neurological History: Reports: Brain Injury, Head Trauma Psychiatric History: Reports: Depression Dermatologic History: Reports: None - Infectious Disease History Infectious Disease History: Reports: Chicken Pox - Past Surgical History HEENT Surgical History: Reports: Adenoidectomy, Tonsillectomy GI Surgical History: Reports: Appendectomy Other Neurological Surgeries/Procedures: 3 head 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 Other Musculoskeletal Surgeries/Procedures:: leg pain, shooting pains in left testicle Dermatological Surgical History: Reports: Skin Biopsy Social & Family History - Family History Family Medical History: Noncontributory HEENT: Reports: None Respiratory: Reports: None GI: Reports: None : Reports: None OBGYN: Reports: None Neurological: Reports: None Psychiatric: Reports: None - Tobacco Use Smoking Status *Q: Never Smoker - Caffeine Use Caffeine Use: Reports: Soda Caffeine Use Comment: 6 pack of mountain dew a day - Recreational Drug Use Recreational Drug Use: No - Living Situation & Occupation Living situation: Reports: Single (lives alone in [place], [place].) ED ROS GENERAL - Review of Systems Review Of Systems: See Below Constitutional: Reports: Malaise HEENT: Reports: No Symptoms Respiratory: Reports: No Symptoms Cardiovascular: Reports: No Symptoms Endocrine: Reports: No Symptoms GI/Abdominal: Reports: Anorexia, Diarrhea, Decreased Appetite, Nausea, Vomiting. Denies: Black Stool, Bloody Stool, Constipation, Melena : Reports: No Symptoms Musculoskeletal: Reports: No Symptoms Skin: Reports: No Symptoms Neurological: Reports: No Symptoms Psychiatric: Reports: No Symptoms ED EXAM, GI/ABD - Physical Exam Exam: See Below Exam Limited By: No Limitations General Appearance: Alert, WD/WN, No Apparent Distress Eyes: Bilateral: Normal Appearance Ears: Normal External Exam, Normal Canal, Hearing Grossly Normal, Normal TMs Nose: Normal Inspection, No Blood Throat/Mouth: Normal Inspection, Normal Lips, Normal Oropharynx, Normal Voice, No Airway Compromise Head: Atraumatic, Normocephalic Neck: Normal Inspection Respiratory/Chest: No Respiratory Distress, Lungs Clear, Normal Breath Sounds, No Accessory Muscle Use Cardiovascular: Regular Rate, Rhythm, No Edema GI/Abdominal Exam: Normal Bowel Sounds, Soft, Non-Tender, No Distention Back Exam: Normal Inspection. No: CVA Tenderness (R), CVA Tenderness (L) Extremities: Normal Inspection, Normal Range of Motion, Non-Tender, No Pedal Edema Neurological: Alert, Oriented, CN II-XII Intact, Normal Cognition, No Motor/ Sensory Deficits Psychiatric: Normal Affect, Normal Mood Skin Exam: Warm, Dry, Intact, Normal Color, No Rash Course - Vital Signs Text/Narrative:: Feeling much better after treatment, only mild abdominal discomfort persists, not worse with coughing. Last Recorded V/S: Last Vital Signs Temp 34.8 C L 05/26/18 20:33 Pulse 65 05/26/18 22:33 Resp 16 05/26/18 21:05 BP 153/92 H 05/26/18 22:33 Pulse Ox 99 05/26/18 22:33 - Orders/Labs/Meds Orders: Active Orders 24 hr Category Date Time Status Lactated Ringers [Ringers, Lactated] 1,000 ml Med 05/26/18 21:57 Active IV BOLUS Medication Orders Lactated Ringer's (Ringers, Lactated) 1,000 mls @ 1,000 mls/hr IV BOLUS ONE Stop: 05/26/18 22:56 Last Admin: 05/26/18 21:59 Dose: 1,000 mls/hr Labs: Laboratory Tests 05/26/18 05/26/18 05/26/18 Range/Units 21:07 21:07 21:22 WBC 19.3 H (4.5-11.0) K/uL RBC 5.15 (4.30-5.90) M/uL Hgb 14.7 (12.0-15.0) g/dL Hct 43.6 (40.0-54.0) % MCV 85 (80-98) fL MCH 29 (27-31) pg MCHC 34 (32-36) % Plt Count 340 (150-400) K/uL Sodium 139 L (140-148) mmol/L Potassium 3.8 (3.6-5.2) mmol/L Chloride 101 (100-108) mmol/L Carbon Dioxide 27 (21-32) mmol/L Anion Gap 14.8 H (5.0-14.0) mmol/L BUN 15 D (7-18) mg/dL Creatinine 1.1 (0.8-1.3) mg/dL Est Cr Clr Drug Dosing 88.39 mL/min Estimated GFR (MDRD) > 60 (>60) Glucose 175 H (74-106) mg/dL Calcium 10.0 (8.5-10.1) mg/dL C-Reactive Protein 0.08 (0.0-0.3) mg/dL Meds: Medications Generic Name Dose Route Start Last Admin Trade Name Mario Alberto PRN Reason Stop Dose Admin Lactated Ringer's 1,000 mls @ 1,000 mls/hr 05/26/18 21:57 05/26/18 21:59 Ringers, Lactated IV 05/26/18 22:56 1,000 mls/hr BOLUS ONE Administration Discontinued Medications Generic Name Dose Route Start Last Admin Trade Name Mario Alberto PRN Reason Stop Dose Admin Acetaminophen 1,000 mg 05/26/18 20:54 05/26/18 21:08 Tylenol Extra Strength PO 05/26/18 20:55 1,000 mg ONETIME ONE Administration Diphenoxylate HCl/Atropine 2 tab 05/26/18 20:53 05/26/18 21:08 Lomotil 0.025-2.5 Mg PO 05/26/18 20:54 2 tab ONETIME ONE Administration Lactated Ringer's 1,000 mls @ 1,000 mls/hr 05/26/18 20:52 05/26/18 21:05 Ringers, Lactated IV 05/26/18 21:51 1,000 mls/hr BOLUS ONE Administration Ondansetron HCl 8 mg 05/26/18 20:53 05/26/18 21:05 Zofran IVPUSH 05/26/18 20:54 8 mg ONETIME ONE Administration Departure - Departure Time of Disposition: 23:00 Disposition: Home, Self-Care 01 Condition: Fair Clinical Impression: Nausea vomiting and diarrhea - Discharge Information *PRESCRIPTION DRUG MONITORING PROGRAM REVIEWED*: No *COPY OF PRESCRIPTION DRUG MONITORING REPORT IN PATIENT YISSEL: No Instructions: Viral Gastroenteritis, Adult, [id number] Referrals: PCP,None [Primary Care Provider] - Forms: ED Department Discharge Additional Instructions: Use Zofran as directed for nausea control. Take loperamide per package instructions for diarrhea control. Sip frequently on clear liquids until the vomiting resolves, then advance your diet slowly to a BRAT diet(bananas, rice, applesauce, yogurt, soda crackers, popsicles, dry white toast, jello). Rest. Isolate yourself to reduce spread. Recheck if worse or not improving. Take acetaminophen as needed for pain relief. - My Orders Last 24 Hours: My Active Orders 05/26/18 21:57 Lactated Ringers [Ringers, Lactated] 1,000 ml IV BOLUS - Assessment/Plan Last 24 Hours: My Active Orders 05/26/18 21:57 Lactated Ringers [Ringers, Lactated] 1,000 ml IV BOLUS
[2018-05-26 22:33] VITALS: BP 153/92
[2018-05-26] MEDS ORDERED: Ondansetron 4 MG Tab.DIS PO ONE (23:29)
[2018-05-26] MEDS ORDERED: Ondansetron 4 MG Tab.DIS ONE (23:31)
== END 2018-05-26 23:19 | disposition home or self-care (01) ==
LOC: JP.ED 19:43
DX: R11.2 Nausea with vomiting, unspecified (principal); R19.7 Diarrhea, unspecified; Z79.899 Other long term (current) drug therapy; Z88.0 Allergy status to penicillin
CPT/HCPCS: 36415; 80048; 85027; 86140; 96361; 96374; 99284; 99284-25; A9270-GY; J2405; J7120

== ENCOUNTER 2018-07-24 16:34 | Emergency (ER) | payer MEDICARE, OTHER ==
[2018-07-24 16:49] VITALS: BP 179/80
[2018-07-24] MEDS ORDERED: Ondansetron 4 MG/2 ML SDV IVPUSH ONE (17:15)
[2018-07-24] MEDS ORDERED: Sodium Chloride 0.9% 1,000 ML IV SCH (17:15)
[2018-07-24] MEDS ORDERED: Doxycycline 100 MG in Sodium Chloride 0.9% 100 ML IV ONE (17:15)
[2018-07-24] MEDS ORDERED: fentaNYL 100 MCG/2 ML SDV IVPUSH ONE (17:26)
--- NOTE | 2018-07-24 17:36 | EDM.PDOC ---
ED HPI GENERAL MEDICAL PROBLEM - General Chief Complaint: General Stated Complaint: ILLNESS Time Seen by Provider: 07/24/18 17:00 Source of Information: Reports: Patient History Limitations: Reports: No Limitations - History of Present Illness INITIAL COMMENTS - FREE TEXT/NARRATIVE: 53-year-old male has had nausea and vomiting and generalized malaise since 6 AM this morning. He was bitten by 20 tics yesterday, told them all off last night after finishing and is concerned it may have something to do with it. He's been breaking out in sweats but no diarrhea, no cough or shortness of breath. His symptoms are very similar to what happened a couple of months ago when he was treated in the emergency room. Onset: Sudden (Symptoms started at 6 AM) Associated Symptoms: Reports: Diaphoresis, Fever/Chills (Chills but unknown if feverish), Malaise, Nausea/Vomiting, Weakness. Denies: Confusion, Chest Pain, Cough Abdomen Pain Score (Numeric/FACES): 7 - Related Data Allergies Allergy/AdvReac Type Severity Reaction Status Date / Time cefazolin sodium [From Ancef] Allergy Severe Anaphylactic Verified 05/26/18 20: 30 Shock Penicillins Allergy Severe Anaphylactic Verified 05/26/18 20:30 Shock succinylcholine chloride Allergy Severe Anaphylactic Verified 05/26/18 20:30 [From Anectine] Shock Home Meds: Home Meds Meloxicam [Mobic] 7.5 mg PO DAILY 01/28/14 [History] Amitriptyline [Elavil] 1 tab PO BEDTIME 10/11/16 [History] Cyclobenzaprine [Flexeril] 1 tab PO BID PRN 10/11/16 [History] tiZANidine 1 tab PO BID PRN 10/11/16 [History] Venlafaxine HCl [Venlafaxine HCl ER] 112.5 mg PO DAILY 10/12/16 [History] Ondansetron HCl [Zofran] 4 mg PO ASDIRECTED PRN 05/31/17 [History] Past Medical History HEENT History: Reports: None Gastrointestinal History: Reports: Cholelithiasis Musculoskeletal History: Reports: Back Pain, Chronic, Fracture Neurological History: Reports: Brain Injury, Head Trauma Psychiatric History: Reports: Depression Dermatologic History: Reports: None - Infectious Disease History Infectious Disease History: Reports: Chicken Pox - Past Surgical History HEENT Surgical History: Reports: Adenoidectomy, Tonsillectomy GI Surgical History: Reports: Appendectomy Other Neurological Surgeries/Procedures: 3 head 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 Other Musculoskeletal Surgeries/Procedures:: leg pain, shooting pains in left testicle Dermatological Surgical History: Reports: Skin Biopsy Social & Family History - Family History Family Medical History: Noncontributory HEENT: Reports: None Respiratory: Reports: None GI: Reports: None : Reports: None OBGYN: Reports: None Neurological: Reports: None Psychiatric: Reports: None - Tobacco Use Smoking Status *Q: Never Smoker - Caffeine Use Caffeine Use: Reports: Soda Caffeine Use Comment: 6 pack of mountain dew a day - Recreational Drug Use Recreational Drug Use: No - Living Situation & Occupation Living situation: Reports: Single (lives alone in [facility]) ED ROS GENERAL - Review of Systems Review Of Systems: See Below Constitutional: Reports: Chills, Malaise, Weakness HEENT: Denies: Vision Change Respiratory: Denies: Shortness of Breath, Cough Cardiovascular: Denies: Chest Pain GI/Abdominal: Reports: Abdominal Pain, Nausea, Vomiting : Reports: No Symptoms Musculoskeletal: Reports: Muscle Pain Skin: Reports: Other (Hurts all over numerous small insect bite wounds from ticks across his abdomen and proximal legs) Psychiatric: Reports: Anxiety ED EXAM, GENERAL - Physical Exam Exam: See Below Exam Limited By: No Limitations General Appearance: Alert, Anxious Eye Exam: Bilateral Eye: Normal Inspection Head: Atraumatic Respiratory/Chest: No Respiratory Distress, Lungs Clear Cardiovascular: Regular Rate, Rhythm. No: Tachycardia GI/Abdominal: Normal Bowel Sounds, Tender (Moderately tender to palpation around the periumbilical area, no rebound tenderness) Extremities: Normal Inspection. No: Pedal Edema Neurological: Alert, Oriented, No Motor/Sensory Deficits Psychiatric: Anxious Skin Exam: Warm, Dry Course - Vital Signs Last Recorded V/S: Last Vital Signs Temp 98.7 F 07/24/18 16:54 Pulse 64 07/24/18 16:54 Resp 17 07/24/18 16:54 BP 179/80 H 07/24/18 16:54 Pulse Ox 96 07/24/18 16:54 - Orders/Labs/Meds Labs: Laboratory Tests 05/26/19 05/26/19 Range/Units 17:15 17:15 WBC 18.4 H (4.5-11.0) K/uL RBC 5.11 (4.30-5.90) M/uL Hgb 14.9 (12.0-15.0) g/dL Hct 44.1 (40.0-54.0) % MCV 86 (80-98) fL MCH 29 (27-31) pg MCHC 34 (32-36) % Plt Count 385 (150-400) K/uL Neut % (Auto) 92 H (36-66) % Lymph % (Auto) 5 L (24-44) % Coleman % (Auto) 3 (2-6) % Eos % (Auto) 0 L (2-4) % Baso % (Auto) 0 (0-1) % Sodium 143 (140-148) mmol/L Potassium 4.2 (3.6-5.2) mmol/L Chloride 103 (100-108) mmol/L Carbon Dioxide 28 (21-32) mmol/L Anion Gap 12.4 (5.0-14.0) mmol/L BUN 13 (7-18) mg/dL Creatinine 1.1 (0.8-1.3) mg/dL Est Cr Clr Drug Dosing 86.43 mL/min Estimated GFR (MDRD) > 60 (>60) Glucose 175 H (74-106) mg/dL Calcium 9.9 (8.5-10.1) mg/dL Total Bilirubin 0.6 D (0.2-1.0) mg/dL AST 27 (15-37) U/L ALT 32 (12-78) U/L Alkaline Phosphatase 103 (46-116) U/L Total Protein 7.7 (6.4-8.2) g/dL Albumin 4.4 (3.4-5.0) g/dL Globulin 3.3 (2.3-3.5) g/dL Albumin/Globulin Ratio 1.3 (1.2-2.2) Amylase 46 (25-115) U/L Lipase 95 (73-393) U/L Meds: Medications Discontinued Medications Generic Name Dose Route Start Last Admin Trade Name Freq PRN Reason Stop Dose Admin Fentanyl 50 mcg 07/24/18 17:26 07/24/18 17:35 Sublimaze IVPUSH 05/26/19 17:27 50 mcg ONETIME ONE Administration Doxycycline Hyclate 100 mg/ 100 mls @ 100 mls/hr 07/24/18 17:15 07/24/18 17: 36 Sodium Chloride IV 07/24/18 18:14 100 mls/hr ONETIME ONE Administration Sodium Chloride 1,000 mls @ 1,000 mls/hr 07/24/18 17:15 07/24/18 17:34 Normal Saline IV 1,000 mls/hr ASDIRECTED RANDY Administration Ondansetron HCl 4 mg 07/24/18 17:15 07/24/18 17:34 Zofran IVPUSH 07/24/18 17:16 4 mg ONETIME ONE Administration - Re-Assessments/Exams Free Text/Narrative Re-Assessment/Exam: 07/24/18 17:42 An IV was started and the patient will be given 1 L of normal saline. He'll also be given 50 g of IV fentanyl, 4 mg of IV Zofran and 100 mg of IV doxycycline. CBC CMP amylase and lipase were obtained. 07/24/18 18:10 Symptoms improved after the medications. White count was elevated at 18,000 but all his other labs were reassuring including amylase lipase and electrolytes. Patient will be discharged with 5 additional doses of oral Zofran to take as needed and can follow-up in the next 24-48 hours if not improving satisfactorily. Departure - Departure Time of Disposition: 19:28 Disposition: Home, Self-Care 01 Clinical Impression: Nausea and vomiting Qualifiers: Vomiting type: unspecified Vomiting Intractability: non-intractable Qualified Code(s): R11.2 - Nausea with vomiting, unspecified Abdominal pain Qualifiers: Abdominal location: lower abdomen, unspecified Qualified Code(s): R10.30 - Lower abdominal pain, unspecified - Discharge Information Instructions: Nausea and Vomiting, Adult, [id number] Referrals: Jordy Shine MD [Primary Care Provider] - Forms: ED Department Discharge Care Plan Goals: Rest tonight, increase diet slowly concentrating on fluids initially. Use Zofran as prescribed for any breakthrough nausea. Recheck in the next 24-48 hours if not improving satisfactorily.
== END 2018-07-24 19:28 | disposition home or self-care (01) ==
LOC: JP.ED 16:34
DX: R11.2 Nausea with vomiting, unspecified (principal); R10.30 Lower abdominal pain, unspecified; F32.9 Major depressive disorder, single episode, unspecified; Z79.899 Other long term (current) drug therapy; Z88.1 Allergy status to other antibiotic agents; Z88.0 Allergy status to penicillin; Z88.8 Allergy status to other drugs, medicaments and biological substances
CPT/HCPCS: 36415; 80053; 82150; 83690; 85025; 96361; 96365; 96375; 99284; J2405; J3010; J3490; J7030

== ENCOUNTER 2020-07-01 13:45 | Emergency (ER) | payer MEDICARE, OTHER ==
--- NOTE | 2020-07-01 16:11 | EDM.PDOC ---
ED HPI GENERAL MEDICAL PROBLEM - General Chief Complaint: Gastrointestinal Problem Stated Complaint: FEELING DEHYDRATED, WEAK, SHAKY Time Seen by Provider: 07/01/20 15:55 Source of Information: Reports: Patient, Old Records, RN History Limitations: Reports: No Limitations - History of Present Illness INITIAL COMMENTS - FREE TEXT/NARRATIVE: 55 yo male presents shortly after resolving vomiting and diarrhea. He denies hematemesis or melena. Has cramping that brings him in now. No known exposures. Onset: Gradual Onset Date: 06/29/20 Duration: Day(s):, Improving Location: Reports: Generalized (cramping) Quality: Reports: Other (crampy) Severity: Moderate Improves with: Reports: None Worsens with: Reports: Other (vomiting/diarrhea/dehydration) Context: Reports: Other (See HPI) Associated Symptoms: Reports: Nausea/Vomiting (resolved). 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: Other (see below) (Power Aid) - Related Data Allergies Allergy/AdvReac Type Severity Reaction Status Date / Time cefazolin sodium [From Ancef] Allergy Severe Anaphylactic Verified 07/01/20 15:13 Shock Penicillins Allergy Severe Anaphylactic Verified 07/01/20 15:13 Shock succinylcholine chloride Allergy Severe Anaphylactic Verified 07/01/20 15:13 [From Anectine] Shock Home Meds: Home Meds Meloxicam [Mobic] 7.5 mg PO DAILY 01/28/14 [History] Amitriptyline [Elavil] 1 tab PO BEDTIME 10/11/16 [History] Cyclobenzaprine [Flexeril] 1 tab PO BID PRN 10/11/16 [History] tiZANidine 1 tab PO BID PRN 10/11/16 [History] Venlafaxine HCl [Venlafaxine HCl ER] 112.5 mg PO DAILY 10/12/16 [History] ondansetron HCL [Zofran] 4 mg PO ASDIRECTED PRN 05/31/17 [History] Past Medical History HEENT History: Reports: None Cardiovascular History: Reports: None Gastrointestinal History: Reports: Cholelithiasis Musculoskeletal History: Reports: Back Pain, Chronic, Fracture Neurological History: Reports: Brain Injury, Head Trauma Psychiatric History: Reports: Depression Dermatologic History: Reports: None - Infectious Disease History Infectious Disease History: Reports: Chicken Pox - Past Surgical History HEENT Surgical History: Reports: Adenoidectomy, Tonsillectomy GI Surgical History: Reports: Appendectomy Other Neurological Surgeries/Procedures: 3 head 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 Other Musculoskeletal Surgeries/Procedures:: leg pain, shooting pains in left testicle Dermatological Surgical History: Reports: Skin Biopsy Social & Family History - Family History Family Medical History: No Pertinent Family History HEENT: Reports: None Respiratory: Reports: None GI: Reports: None : Reports: None OBGYN: Reports: None Neurological: Reports: None Psychiatric: Reports: None - Tobacco Use Tobacco Use Status *Q: Never Tobacco User - Caffeine Use Caffeine Use: Reports: Soda Caffeine Use Comment: 6 pack of mountain dew a day - Recreational Drug Use Recreational Drug Type: Reports: Marijuana/Hashish Recreational Drug Use Frequency: Socially - Living Situation & Occupation Living situation: Reports: Single (lives alone in [facility]) ED ROS GENERAL - Review of Systems Review Of Systems: See Below Constitutional: Reports: Malaise HEENT: Reports: No Symptoms Respiratory: Reports: No Symptoms Cardiovascular: Reports: No Symptoms GI/Abdominal: Denies: Diarrhea (resolved), Nausea (recently resolved), Vomiting (resolved) : Reports: No Symptoms Musculoskeletal: Reports: No Symptoms Skin: Reports: No Symptoms Neurological: Reports: No Symptoms Psychiatric: Reports: No Symptoms ED EXAM, GI/ABD - Physical Exam Exam: See Below Exam Limited By: No Limitations General Appearance: Alert, WD/WN, No Apparent Distress Eyes: Bilateral: Normal Appearance Ears: Normal External Exam, Normal Canal, Hearing Grossly Normal Nose: Normal Inspection, No Blood Throat/Mouth: Normal Inspection, Normal Lips, Normal Oropharynx, Normal Voice, No Airway Compromise Head: Atraumatic, Normocephalic Neck: Normal Inspection Respiratory/Chest: No Respiratory Distress, Lungs Clear, Normal Breath Sounds, No Accessory Muscle Use Cardiovascular: Regular Rate, Rhythm, No Edema GI/Abdominal Exam: Normal Bowel Sounds, Soft, Non-Tender, No Distention Back Exam: Normal Inspection, Vertebral Tenderness Extremities: Normal Inspection, Non-Tender, No Pedal Edema Neurological: Alert, Oriented, CN II-XII Intact, Normal Cognition, No Motor/Sensory Deficits Psychiatric: Normal Affect, Normal Mood Skin Exam: Warm, Dry, Intact, Normal Color, No Rash Course - Vital Signs Last Recorded V/S: Last Vital Signs Temp 35.8 C L 07/01/20 15:14 Pulse 74 07/01/20 16:33 Resp 14 07/01/20 16:03 BP 166/106 H 07/01/20 16:33 Pulse Ox 94 L 07/01/20 16:33 Orthostatic Blood Pressure [] 138/88 Orthostatic Blood Pressure [] 148/96 Orthostatic Blood Pressure [] 168/88 - Orders/Labs/Meds Orders: Active Orders 24 hr Category Date Time Status Orthostatic Vital Signs [RC] ASDIRECTED Care 07/01/20 17:47 Ordered Lactated Ringers [Ringers, Lactated] 1,000 ml Med 07/01/20 17:49 Ordered IV BOLUS Labs: Laboratory Tests 07/01/20 Range/Units 16:23 Sodium 136 L (140-148) mmol/L Potassium 4.0 (3.6-5.2) mmol/L Chloride 98 L (100-108) mmol/L Carbon Dioxide 23 (21-32) mmol/L Anion Gap 19.0 H (5.0-14.0) mmol/L BUN 29 H D (7-18) mg/dL Creatinine 1.4 H (0.8-1.3) mg/dL Est Cr Clr Drug Dosing 68.67 mL/min Estimated GFR (MDRD) 52 L (>60) Glucose 126 H (74-106) mg/dL Calcium 9.5 (8.5-10.1) mg/dL Meds: Medications Discontinued Medications Generic Name Dose Route Start Last Admin Trade Name Freq PRN Reason Stop Dose Admin Lactated Ringer's 1,000 mls @ 1,000 mls/hr 07/01/20 16:05 07/01/20 16:34 Ringers, Lactated IV 07/01/20 17:04 1,000 mls/hr BOLUS ONE Administration Departure - Departure Time of Disposition: 18:55 Disposition: Home, Self-Care 01 Condition: Fair Clinical Impression: Mild dehydration, Muscle cramps, Viral gastroenteritis - Discharge Information *PRESCRIPTION DRUG MONITORING PROGRAM REVIEWED*: Not Applicable *COPY OF PRESCRIPTION DRUG MONITORING REPORT IN PATIENT YISSEL: Not Applicable Instructions: Muscle Cramps and Spasms, [id number], Dehydration, Adult, [id number] Referrals: Jordy Shine MD [Primary Care Provider] - Forms: ED Department Discharge Additional Instructions: Drink enough Power Aid so your urine is light yellow in color. Recheck as needed here or with your provider. Sepsis Event Note (ED) - Evaluation Sepsis Screening Result: No Definite Risk - Focused Exam Vital Signs: Vital Signs Temp Pulse Resp BP Pulse Ox 07/01/20 16:33 74 166/106 H 94 L 07/01/20 16:03 78 14 187/94 H 96 07/01/20 15:14 35.8 C L 84 22 H 191/103 H 98 07/01/20 15:09 35.8 C L 84 22 H 191/103 H 98 - My Orders Last 24 Hours: My Active Orders 07/01/20 17:47 Orthostatic Vital Signs [RC] ASDIRECTED 07/01/20 17:49 Lactated Ringers [Ringers, Lactated] 1,000 ml IV BOLUS - Assessment/Plan Last 24 Hours: My Active Orders 07/01/20 17:47 Orthostatic Vital Signs [RC] ASDIRECTED 07/01/20 17:49 Lactated Ringers [Ringers, Lactated] 1,000 ml IV BOLUS
[2020-07-01] MEDS: Lactated Ringers 1,000 ML IV ONE ×2 (16:34→17:54)
[2020-07-01 16:55] VITALS: BP 166/106; PULSE 74
== END 2020-07-01 18:55 | disposition home or self-care (01) ==
LOC: JP.ED 13:45
DX: A08.4 Viral intestinal infection, unspecified (principal); E86.0 Dehydration; R25.2 Cramp and spasm; Z88.1 Allergy status to other antibiotic agents; Z88.0 Allergy status to penicillin; Z88.8 Allergy status to other drugs, medicaments and biological substances
CPT/HCPCS: 36415; 80048; 99284; J7120; 99283